=== PATIENT | female | born 1970 | race American Indian/Alaskan Native ===

== ENCOUNTER 2018-10-10 17:29 | Inpatient (IN) | payer MEDICAID ==
[~2018-10-10] VITALS: Ht 162.6 cm; Wt 72.6 kg
[~2018-10-10 17:29] MED LIST: ALDACTONE100 MG PO; ALDACTONE50 MG PO; CARAFATE1 G PO; ENULOSE10 G/15 ML PO; LASIX20 MG; LASIX40 MG PO; LEVAQUIN500 MG PO; PROTONIX40 MG PO; ULTRAM50 MG PO
[2018-10-10 18:39] VITALS: BP 105/55
[2018-10-10 18:41] LABS: BASOPHILS 0.2 % (0-2); EOSINOPHILS 1.2 % (0-7); HEMOGLOBIN 10.8 g/dL (12-16); IMMATURE GRANULOCYTES 0.9 % (0-5); LYMPHOCYTES 12.3 % (15-50); MCH 41.5 pg (26.0-34.0); MCHC 37.2 g/dL (31.0-37.0); MCV 111.5 fL (80.0-100.0); MEAN PLATELET VOLUME 12.3 fL (7.4-10.4); MONOCYTES 9.2 % (2-11); NEUTROPHILS 76.2 % (40-80); PLATELET COUNT 189 10x3/uL (130-400); RDW 14.8 % (11.5-14.5); WBC 12.8 10x3/uL (4.8-10.8)
[2018-10-10 19:46] LABS: ALBUMIN 1.7 g/dL (3.4-5.0); ALKALINE PHOSPHATASE 117 U/L (46-116); ALT (SGPT) 43 U/L (10-68); AMYLASE - SERUM 34 U/L (25-115); BILIRUBIN - DIRECT 19.49 mg/dL (0.00-0.30); CALC OSMOLALITY 256 mosm/kg (275-300); CARBON DIOXIDE 21.1 mmol/L (21.0-32.0); CHLORIDE - SERUM 95 mmol/L (98-107); CREATININE - SERUM 0.7 mg/dL (0.6-1.3); GLUCOSE 112 mg/dL (74-106); LIPASE 399 U/L (73-393); SODIUM 128 mmol/L (136-145); UREA NITROGEN 9 mg/dL (7-18); eGFR NON AFRICAN AMERICAN > 90 mL/min (90-120)
[2018-10-10 19:49] LABS: BILIRUBIN - INDIRECT 6.23 mg/dL (0.00-1.00); BILIRUBIN - TOTAL 25.72 mg/dL (0.2-1.3); TROPONIN-I < 0.017 ng/mL (0.000-0.060)
[2018-10-10 19:52] LABS: POTASSIUM - SERUM 2.9 mmol/L (3.5-5.1)
[2018-10-10 20:03] VITALS: BP 104/63
[2018-10-10 20:32] LABS: MAGNESIUM - SERUM 2.3 mg/dL (1.8-2.4)
[2018-10-10 21:04] VITALS: BP 99/66
--- NOTE | 2018-10-10 21:59 | NUR ---
URINE SENT TO THE LAB.
[2018-10-10 22:26] LABS: APPEARANCE CLOUDY (CLEAR); COLOR ORANGE (YELLOW)
[2018-10-10 22:28] LABS: BACTERIA MANY /hpf (NONE SEEN); EPITHELIAL CELLS 0-5 /hpf (0-5); RED CELLS - URINE OCC /hpf (0-5)
[2018-10-10 22:33] VITALS: BP 97/68; BMI 27.5
[2018-10-10 23:00] LABS: INR 3.93 (0.85-1.17); PROTIME 37.6 SECONDS (11.6-15.0)
[2018-10-11 04:31] VITALS: BP 105/60
[2018-10-11 07:37] VITALS: BP 95/58
--- NOTE | 2018-10-11 07:46 | NUR ---
PT SITTING UP IN BED EATING. ASSESSMENT COMPLETE. RR EVEN AND UNLABORED. DENIES NEEDS OR PAIN AT THIS TIME. SLIGHT JAUNDICE NOTED. CRACKLES IN LOWER RIGHT LOBE. IV SLIGHTLY BLOODY BUT PATENT. ABDOMEN DISTENDED. ACTIVE X4.
[2018-10-11 10:14] LABS: ALBUMIN 1.4 g/dL (3.4-5.0); ALKALINE PHOSPHATASE 105 U/L (46-116); BILIRUBIN - TOTAL 22.53 mg/dL (0.2-1.3); CALC OSMOLALITY 257 mosm/kg (275-300); CALCIUM 7.5 mg/dL (8.5-10.1); CARBON DIOXIDE 19.7 mmol/L (21.0-32.0); CHLORIDE - SERUM 96 mmol/L (98-107); CREATININE - SERUM 0.8 mg/dL (0.6-1.3); GLUCOSE 134 mg/dL (74-106); PROTEIN - SERUM 5.5 g/dL (6.4-8.2); SODIUM 128 mmol/L (136-145); UREA NITROGEN 9 mg/dL (7-18); eGFR NON AFRICAN AMERICAN 81 mL/min (90-120)
[2018-10-11 10:18] LABS: ALT (SGPT) 32 U/L (10-68)
[2018-10-11 10:19] LABS: POTASSIUM - SERUM 2.8 mmol/L (3.5-5.1)
[2018-10-11 10:26] LABS: BASOPHILS 0.2 % (0-2); EOSINOPHILS 1.4 % (0-7); HEMATOCRIT 25.2 % (36.0-48.0); HEMOGLOBIN 9.2 g/dL (12-16); IMMATURE GRANULOCYTES 0.8 % (0-5); LYMPHOCYTES 10.1 % (15-50); MCH 40.5 pg (26.0-34.0); MCHC 36.5 g/dL (31.0-37.0); MEAN PLATELET VOLUME 11.3 fL (7.4-10.4); MONOCYTES 8.9 % (2-11); NEUTROPHILS 78.6 % (40-80); RBC 2.27 10x6/uL (4.00-5.40); RDW 14.6 % (11.5-14.5)
[2018-10-11 10:31] LABS: PLATELET COUNT 120 10x3/uL (130-400)
[2018-10-11 10:58] LABS: INR 2.15 (0.85-1.17); PROTIME 23.4 SECONDS (11.6-15.0)
[2018-10-11 13:15] VITALS: Ht 162.6 cm; Wt 72.6 kg
--- NOTE | 2018-10-11 15:18 | NUR ---
I have reviewed this patient and I concur with the Shift Assessment completed by the Licensed Practical Nurse today this shift.
--- NOTE | 2018-10-11 16:33 | NUR ---
IV DRESSING CHANGED. CDI
--- NOTE | 2018-10-11 19:40 | NUR ---
EVENING ROUNDS COMPLETE. VSS, NO SIGNS OF DISTRESS, FAMILY AT BEDSIDE. PT SITTING UP IN BED. DENIES ANY PAIN AT THIS TIME. WILL CONT WITH POC.
[2018-10-11 20:07] VITALS: BP 102/62
[2018-10-12 01:01] VITALS: BP 95/47
[2018-10-12 05:23] VITALS: BP 95/50
[2018-10-12 06:38] LABS: INR 2.14 (0.85-1.17); PROTIME 23.3 SECONDS (11.6-15.0)
[2018-10-12 06:39] LABS: APTT 50.6 SECONDS (22.8-39.4)
[2018-10-12 06:52] LABS: BASOPHILS 0.2 % (0-2); EOSINOPHILS 1.9 % (0-7); HEMATOCRIT 25.4 % (36.0-48.0); HEMOGLOBIN 9.4 g/dL (12-16); IMMATURE GRANULOCYTES 0.7 % (0-5); LYMPHOCYTES 15.3 % (15-50); MCH 40.9 pg (26.0-34.0); MCV 110.4 fL (80.0-100.0); MEAN PLATELET VOLUME 11.2 fL (7.4-10.4); MONOCYTES 11.3 % (2-11); NEUTROPHILS 70.6 % (40-80); PLATELET COUNT 124 10x3/uL (130-400); RDW 14.7 % (11.5-14.5); WBC 8.8 10x3/uL (4.8-10.8)
[2018-10-12 07:02] LABS: % SATURATION 98 % (15-55); IRON 88 ug/dl (35-150); TOTAL IRON BIND CAPACITY 89 ug/dl (260-445); UNSAT IRON BIND CAPACITY 1 ug/dl (150-375)
[2018-10-12 07:31] LABS: ALBUMIN 1.5 g/dL (3.4-5.0); ALKALINE PHOSPHATASE 113 U/L (46-116); ALT (SGPT) 32 U/L (10-68); BILIRUBIN - TOTAL 20.88 mg/dL (0.2-1.3); CALC OSMOLALITY 254 mosm/kg (275-300); CALCIUM 7.8 mg/dL (8.5-10.1); CARBON DIOXIDE 20.6 mmol/L (21.0-32.0); CHLORIDE - SERUM 99 mmol/L (98-107); CREATININE - SERUM 0.7 mg/dL (0.6-1.3); GLUCOSE 104 mg/dL (74-106); LIPASE 549 U/L (73-393); PROTEIN - SERUM 5.6 g/dL (6.4-8.2); SODIUM 128 mmol/L (136-145); UREA NITROGEN 8 mg/dL (7-18); eGFR NON AFRICAN AMERICAN > 90 mL/min (90-120)
[2018-10-12 07:33] LABS: FERRITIN 1506 ng/mL (3-244); POTASSIUM - SERUM 3.6 mmol/L (3.5-5.1)
[2018-10-12 08:10] LABS: HEPATITIS C ANTIBODY <0.1 S/CO RAT (0.0-0.9)
--- NOTE | 2018-10-12 08:19 | NUR ---
PT SITTING UP. RR EVEN AND UNLABORED. NO DISTRESS NOTED. DENIES NEEDS OR PAIN AT THIS TIME. ALERT AND ORIENTED. WILL CONTINUE TO MONITOR.
--- NOTE | 2018-10-12 12:23 | NUR ---
IV LEAKING. D/C WITH CATHETER TIP INTACT. DRESSING PLACED OVER SITE, CDI. IV RESITED TO LEFT WRIST, DRESSING PLACED, CDI.
--- NOTE | 2018-10-12 14:39 | NUR ---
IR- WILL EVALUATE PT/INR IN AM FOR POSSIBLE PARACENTESIS
[2018-10-12 18:08] VITALS: BP 107/48
--- NOTE | 2018-10-12 18:54 | MORECARE ---
CASE MANAGEMENT DISCHARGE SUMMARY PATIENT: ADELINA FOSTER UNIT: [id number] ADM DATE: 10/11/18 AGE: 47 : 68 SEX: F ROOM/BED: D.1212 AUTHOR: MO,DOC PHYSICIAN: REFERRING PHYSICIAN: KENAN RUFFIN MD DATE OF SERVICE: 10/12/18 Discharge Plan Patient Name: ADELINA FOSTER Facility: [facility]:[place] : 1970 Planned Disposition: Home Anticipated Discharge Date: Discharge Date: Expected LOS: Initial Reviewer: [email or web address] Initial Review Date: 10/12/2018 Generated: 10/12/18 7:54 pm Comments DCP- Discharge Planning Updated by [email or web address]: Cristela Jack on 10/12/18 5:[address] Patient Name: ADELINA FOSTER Admission Status: ER Accout number: [id number] Admission Date: 10-11-2018 : 1970 Admission Diagnosis: Attending: KENAN RUFFIN Current LOS: 1 Anticipated DC Date: Planned Disposition: Home Primary Insurance: MEDICAID [place] PENDING Discharge Planning Comments: CM met with patient at bedside after explaining CM role and obtaining verbal consent. Patient lives at home with her son Laurence and plans to return there upon discharge. Patient feels this would be a safe discharge. CM discussed availability / needs of home health and medical equipment. Patient denies any discharge needs at this time. Patient states she will have her son drive her home upon discharge. CM will continue to follow and assist as needed with discharge planning / needs. Surgical Clinical Reviewer: Cristela Jack DCPIA - Discharge Planning Initial Assessment Updated by [email or web address]: Cristela Jack on 10/12/18 6:52 pm * Is the patient Alert and Oriented? Yes * How many steps to enter\exit or inside your home? 15 * PCP NO PCP * Pharmacy [facility] * Preadmission Environment Home with Family * ADLs Independent * List name and contact numbers for known caregivers / representatives who currently or will assist patient after discharge: LAURENCE LOUIE - ROSA - [phone] * Verbal permission to speak to the caregivers and representatives has been obtained from the patient. Yes * Community resources currently utilized None * Additional services required to return to the preadmission environment? No * Can the patient safely return to the preadmission environment? Yes * Has this patient been hospitalized within the prior 30 days at any hospital? No Patient Name: ADELINA FOSTER Page [phone] at 1854 All edits/amendments must be made on the electronic document DICTATION DATE: 10/12/181853 FIBER ANALYST: LUCÍA 10/12/181853 RPT#: [id number] DC DATE: STATUS: ADM IN [facility] [address] [place] [address] END OF REPORT
[2018-10-12 19:50] VITALS: BP 101/65
--- NOTE | 2018-10-12 20:00 | NUR ---
EVENING ROUNDS COMPLETE, PT SITTING UP IN BED, FAMILY AT BEDSIDE. VSS, NO SIGNS OF DISTRESS, PT DENIES ANY PAIN OR NEEDS AT THIS TIME. WILL CONT WITH POC.
[2018-10-12 23:39] VITALS: BP 97/57
[2018-10-13] VITALS (12 sets, daily range): BP systolic 87–106; BP diastolic 50–70
--- NOTE | 2018-10-13 04:43 | NUR ---
PT SITTING UP IN BED, NO SIGNS OF DISTRESS, NO C/O PAIN AT THIS TIME. WILL CONT WITH POC.
--- NOTE | 2018-10-13 07:10 | NUR ---
PT RESTING IN BED. SHIFT ASSESSMENT PERFORMED. VSS AND WNL. DENIES ANY NEEDS AT THIS TIME, WILL CONT TO FOLLOW POC
[2018-10-13 07:51] LABS: BASOPHILS 0.2 % (0-2); EOSINOPHILS 2.4 % (0-7); HEMATOCRIT 24.7 % (36.0-48.0); HEMOGLOBIN 9.1 g/dL (12-16); IMMATURE GRANULOCYTES 0.7 % (0-5); LYMPHOCYTES 14.1 % (15-50); MCH 40.4 pg (26.0-34.0); MCHC 36.8 g/dL (31.0-37.0); MCV 109.8 fL (80.0-100.0); MEAN PLATELET VOLUME 10.8 fL (7.4-10.4); NEUTROPHILS 72.6 % (40-80); PLATELET COUNT 114 10x3/uL (130-400); RBC 2.25 10x6/uL (4.00-5.40); RDW 14.4 % (11.5-14.5); WBC 8.7 10x3/uL (4.8-10.8)
[2018-10-13 07:53] LABS: APTT 50.7 SECONDS (22.8-39.4); INR 2.04 (0.85-1.17); PROTIME 22.4 SECONDS (11.6-15.0)
[2018-10-13 08:00] LABS: ALBUMIN 1.4 g/dL (3.4-5.0); ALKALINE PHOSPHATASE 118 U/L (46-116); ALT (SGPT) 32 U/L (10-68); BILIRUBIN - TOTAL 20.16 mg/dL (0.2-1.3); CALC OSMOLALITY 259 mosm/kg (275-300); CALCIUM 7.7 mg/dL (8.5-10.1); CARBON DIOXIDE 21.5 mmol/L (21.0-32.0); CHLORIDE - SERUM 99 mmol/L (98-107); CREATININE - SERUM 0.7 mg/dL (0.6-1.3); GLUCOSE 112 mg/dL (74-106); LIPASE 589 U/L (73-393); PROTEIN - SERUM 5.6 g/dL (6.4-8.2); SODIUM 130 mmol/L (136-145); UREA NITROGEN 7 mg/dL (7-18); eGFR NON AFRICAN AMERICAN > 90 mL/min (90-120)
[2018-10-13 08:01] LABS: POTASSIUM - SERUM 2.9 mmol/L (3.5-5.1)
--- NOTE | 2018-10-13 08:15 | NUR ---
IVR NOTIFIED NURSE TO OBTAIN CONSENT FOR PARACENTESIS AND TO START NS AT [facility]. CONSENT SIGNED WITH SECOND NURSE WITNESS. IVR HERE AND TOOK PT FOR PROCEDURE
--- NOTE | 2018-10-13 18:08 | NUR ---
PT RESTING IN BED, DENIES ANY NEEDS AT THIS TIME. WILL CONT TO FOLLOW POC
--- NOTE | 2018-10-13 19:17 | NUR ---
EVENING ROUNDS COMPLETE. PT SITTING UP IN BED WITH FAMILY AT BEDSIDE, VSS, NO C/O PAIN AT THIS TIME. PT DENIES ANY FURTHER NEEDS, WILL CONT WITH POC.
[2018-10-14 00:11] VITALS: BP 98/56
--- NOTE | 2018-10-14 00:40 | NUR ---
PT LAYING IN BED, NO C/O PAIN WILL CONT WITH POC.
[2018-10-14 03:56] VITALS: BP 102/56
[2018-10-14 06:57] VITALS: BP 90/50
[2018-10-14 07:01] LABS: INR 2.17 (0.85-1.17); PROTIME 23.4 SECONDS (11.6-15.0)
[2018-10-14 07:16] LABS: ALKALINE PHOSPHATASE 108 U/L (46-116); ALT (SGPT) 30 U/L (10-68); BILIRUBIN - TOTAL 19.54 mg/dL (0.2-1.3); CALC OSMOLALITY 263 mosm/kg (275-300); CALCIUM 8.1 mg/dL (8.5-10.1); CARBON DIOXIDE 21.8 mmol/L (21.0-32.0); CHLORIDE - SERUM 101 mmol/L (98-107); CREATININE - SERUM 0.7 mg/dL (0.6-1.3); GLUCOSE 113 mg/dL (74-106); LIPASE 496 U/L (73-393); PROTEIN - SERUM 5.5 g/dL (6.4-8.2); SODIUM 132 mmol/L (136-145); UREA NITROGEN 7 mg/dL (7-18); eGFR NON AFRICAN AMERICAN > 90 mL/min (90-120)
[2018-10-14 07:24] LABS: ALBUMIN 1.8 g/dL (3.4-5.0); POTASSIUM - SERUM 3.4 mmol/L (3.5-5.1)
--- NOTE | 2018-10-14 07:44 | NUR ---
PT RESTING IN BED, SHIFT ASSESSMENT PERFORMED. DENIES ANY NEEDS AT THIS TIME. WILL CONT TO FOLLOW POC
[2018-10-14 08:12] LABS: BASOPHILS 0.3 % (0-2); EOSINOPHILS 2.7 % (0-7); HEMATOCRIT 24.4 % (36.0-48.0); HEMOGLOBIN 8.9 g/dL (12-16); IMMATURE GRANULOCYTES 1.1 % (0-5); LYMPHOCYTES 15.8 % (15-50); MCH 40.6 pg (26.0-34.0); MCHC 36.5 g/dL (31.0-37.0); MCV 111.4 fL (80.0-100.0); MEAN PLATELET VOLUME 11.3 fL (7.4-10.4); MONOCYTES 12.4 % (2-11); NEUTROPHILS 67.7 % (40-80); PLATELET COUNT 103 10x3/uL (130-400); RBC 2.19 10x6/uL (4.00-5.40); RDW 14.5 % (11.5-14.5); WBC 7.4 10x3/uL (4.8-10.8)
--- NOTE | 2018-10-14 11:42 | NUR ---
PT RESTING IN BED, DENIES ANY NEEDS AT THIS TIME. WILL CONT TO FOLLOW POC
[2018-10-14 11:57] VITALS: BP 102/56
--- NOTE | 2018-10-14 12:49 | NUR ---
Nutrition Follow-up: S/p paracentesis 10/13. Pt reports increased PO intake 2/2 decreased abdominal swelling. Also drinking Boost. Diarrhea 2/2 lactulose. Diet: Cardiac/1500 alfreda 2g Na PO intake: 75% this AM Labs reviewed Meds reviewed Rec continue current diet as tolerated. [place] food preferences within diet restrictions. RD following.
--- NOTE | 2018-10-14 18:30 | NUR ---
PT RESTING IN BED, FAMILY AT BEDSIDE, DENIES ANY NEEDS AT THIS TIME, WILL CONT TO FOLLOW POC
--- NOTE | 2018-10-14 19:40 | NUR ---
RECEIVED PT. VOICES NO C/O OF PAIN OR DISCOMFORT AT THIS TIME. NO S/S OF DISTRESS NOTED. SON PRESENT AT BEDSIDE. WILL CPOC.
[2018-10-14 20:00] VITALS: BP 90/50
[2018-10-15] VITALS: BP 102/58
[2018-10-15 03:50] VITALS: BP 99/57
[2018-10-15 07:11] LABS: ALBUMIN 1.8 g/dL (3.4-5.0); ALKALINE PHOSPHATASE 122 U/L (46-116); ALT (SGPT) 33 U/L (10-68); BILIRUBIN - TOTAL 20.08 mg/dL (0.2-1.3); CALC OSMOLALITY 258 mosm/kg (275-300); CALCIUM 8.2 mg/dL (8.5-10.1); CARBON DIOXIDE 19.3 mmol/L (21.0-32.0); CHLORIDE - SERUM 100 mmol/L (98-107); CREATININE - SERUM 0.6 mg/dL (0.6-1.3); GLUCOSE 107 mg/dL (74-106); LIPASE 509 U/L (73-393); SODIUM 130 mmol/L (136-145); UREA NITROGEN 7 mg/dL (7-18); eGFR NON AFRICAN AMERICAN > 90 mL/min (90-120)
[2018-10-15 07:14] LABS: BASOPHILS 0.2 % (0-2); EOSINOPHILS 2.2 % (0-7); HEMATOCRIT 26.9 % (36.0-48.0); HEMOGLOBIN 9.6 g/dL (12-16); IMMATURE GRANULOCYTES 1.1 % (0-5); LYMPHOCYTES 16.4 % (15-50); MCH 40.3 pg (26.0-34.0); MCHC 35.7 g/dL (31.0-37.0); MEAN PLATELET VOLUME 11.7 fL (7.4-10.4); MONOCYTES 10.6 % (2-11); NEUTROPHILS 69.5 % (40-80); PLATELET COUNT 113 10x3/uL (130-400); RBC 2.38 10x6/uL (4.00-5.40); RDW 14.6 % (11.5-14.5); WBC 8.9 10x3/uL (4.8-10.8)
[2018-10-15 07:19] LABS: APTT 48.9 SECONDS (22.8-39.4); INR 1.98 (0.85-1.17); PROTIME 21.8 SECONDS (11.6-15.0)
--- NOTE | 2018-10-15 07:45 | NUR ---
PT RESTING IN BED, VSS AND WNL. SHIFT ASSESSMENT PERFORMED. DENIES ANY NEEDS AT THIS TIME, CALL LIGHT WITHIN REACH, WILL CONT TO FOLLOW POC
[2018-10-15 08:30] VITALS: BP 94/52
--- NOTE | 2018-10-15 12:00 | NUR ---
PT RESTING IN BED, DENIES ANY NEEDS AT THIS TIME. WILL CONT TO FOLLOW POC
--- NOTE | 2018-10-15 13:59 | NUR ---
PIV TO PT LEFT WRIST INFILTRATED, PIV REMOVED WITH CATHETER TIP INTACT. 22G PIV INSERTED X1 ATTEMPT TO RIGHT FA. PT TOLERATED WELL.
--- NOTE | 2018-10-15 18:16 | NUR ---
PT RESTING IN BED, DENIES ANY NEEDS AT THIS TIME, WILL CONT TO FOLLOW POC
--- NOTE | 2018-10-15 19:20 | NUR ---
RECEIVED PT. IN BED. RR EVEN AND UNLABORED. NO S/S OF DISTRESS NOTED AT THIS TIME. PROVIDED PAIN MEDICATION PER REQUEST. WILL CPOC.
[2018-10-15 19:40] VITALS: BP 112/58
--- NOTE | 2018-10-15 19:40 | NUR ---
RECEIVED PT. IN BED RESTING. VOICES NO C/O OR CONCERNS NOTED AT THIS TIME. NO S/S OF DISTRESS. WILL CPOC.
[2018-10-16 00:45] VITALS: BP 104/54
--- NOTE | 2018-10-16 07:37 | NUR ---
PT RESTING IN BED. BROUGHT SOME COFFEE PER REQUEST. NO S/S OF ACUTE DISTRESS. CL IN PLACE.
[2018-10-16 07:44] VITALS: BP 93/50
[2018-10-16 09:00] LABS: BASOPHILS 0.3 % (0-2); EOSINOPHILS 2.3 % (0-7); HEMATOCRIT 26.7 % (36.0-48.0); HEMOGLOBIN 9.3 g/dL (12-16); IMMATURE GRANULOCYTES 0.9 % (0-5); LYMPHOCYTES 12.9 % (15-50); MCH 39.7 pg (26.0-34.0); MCHC 34.8 g/dL (31.0-37.0); MCV 114.1 fL (80.0-100.0); MEAN PLATELET VOLUME 11.4 fL (7.4-10.4); MONOCYTES 10.4 % (2-11); NEUTROPHILS 73.2 % (40-80); PLATELET COUNT 106 10x3/uL (130-400); RBC 2.34 10x6/uL (4.00-5.40); RDW 14.6 % (11.5-14.5); WBC 7.4 10x3/uL (4.8-10.8)
[2018-10-16 09:17] LABS: ALBUMIN 1.8 g/dL (3.4-5.0); ALKALINE PHOSPHATASE 126 U/L (46-116); ALT (SGPT) 37 U/L (10-68); APTT 49.4 SECONDS (22.8-39.4); BILIRUBIN - TOTAL 20.24 mg/dL (0.2-1.3); CALCIUM 8.4 mg/dL (8.5-10.1); CARBON DIOXIDE 18.8 mmol/L (21.0-32.0); CHLORIDE - SERUM 98 mmol/L (98-107); GLUCOSE 144 mg/dL (74-106); INR 1.96 (0.85-1.17); LIPASE 566 U/L (73-393); POTASSIUM - SERUM 3.8 mmol/L (3.5-5.1); PROTEIN - SERUM 5.8 g/dL (6.4-8.2); PROTIME 21.7 SECONDS (11.6-15.0); SODIUM 128 mmol/L (136-145); eGFR NON AFRICAN AMERICAN 81 mL/min (90-120)
[2018-10-16 09:19] LABS: CALC OSMOLALITY 258 mosm/kg (275-300); CREATININE - SERUM 0.8 mg/dL (0.6-1.3); UREA NITROGEN 10 mg/dL (7-18)
--- NOTE | 2018-10-16 11:03 | NUR ---
1030 SPOKE WITH EDGAR ABOUT AMMONIA-55. NO NEW ORDERS DT NO MENTAL CHANGES. 110/60. ASKED IF WE SHOULD GIVE LASIX AND SPIRALACTONE. OK TO ADMINISTER LASIX. WAIT TO ADMINISTER SPIRALACTONE IN 3 HOURS. NO S/S OF ACUTE DISTRESS. CL IN PLACE.
[2018-10-16 12:18] VITALS: BP 99/55
--- NOTE | 2018-10-16 13:27 | NUR ---
REC'D PT FROM IR. 96/53.99.96% ON RA. DENIES ANY PAIN. NO S/S OF ACUTE DISTRESS. CL IN PLACE.
[2018-10-16 15:56] VITALS: BP 88/46
--- NOTE | 2018-10-16 18:29 | NUR ---
PT RESTING IN BED. NO S/S OF ACUTE DISTRESS. DENIES ANY NEEDS. CL IN PLACE.
--- NOTE | 2018-10-16 19:38 | NUR ---
ASSUMED PT CARE. IN BED RESTING. DENIES NEEDS AT THIS TIME. RR EVEN AND UNLABORED. NO S/S OF DISTRESS NOTED. WILL CPOC.
[2018-10-16 20:15] VITALS: BP 105/62
[2018-10-17 05:27] VITALS: BP 96/55
[2018-10-17 06:55] LABS: BASOPHILS 0.3 % (0-2); EOSINOPHILS 1.9 % (0-7); HEMOGLOBIN 8.9 g/dL (12-16); IMMATURE GRANULOCYTES 1.1 % (0-5); MCH 39.9 pg (26.0-34.0); MCHC 35.6 g/dL (31.0-37.0); MEAN PLATELET VOLUME 11.3 fL (7.4-10.4); MONOCYTES 12.5 % (2-11); NEUTROPHILS 69.2 % (40-80); PLATELET COUNT 93 10x3/uL (130-400); RBC 2.23 10x6/uL (4.00-5.40); RDW 14.4 % (11.5-14.5); WBC 7.3 10x3/uL (4.8-10.8)
[2018-10-17 07:01] LABS: MCV 112.1 fL (80.0-100.0)
[2018-10-17 07:18] LABS: ALBUMIN 1.6 g/dL (3.4-5.0); ALKALINE PHOSPHATASE 113 U/L (46-116); BILIRUBIN - TOTAL 18.47 mg/dL (0.2-1.3); CALC OSMOLALITY 256 mosm/kg (275-300); CALCIUM 8.5 mg/dL (8.5-10.1); CARBON DIOXIDE 19.3 mmol/L (21.0-32.0); CHLORIDE - SERUM 99 mmol/L (98-107); CREATININE - SERUM 0.7 mg/dL (0.6-1.3); GLUCOSE 111 mg/dL (74-106); POTASSIUM - SERUM 3.5 mmol/L (3.5-5.1); PROTEIN - SERUM 5.6 g/dL (6.4-8.2); SODIUM 128 mmol/L (136-145); UREA NITROGEN 10 mg/dL (7-18); eGFR NON AFRICAN AMERICAN > 90 mL/min (90-120)
[2018-10-17 07:21] LABS: ALT (SGPT) 26 U/L (10-68)
[2018-10-17 07:27] VITALS: BP 93/54
--- NOTE | 2018-10-17 07:30 | NUR ---
PT RESTING IN BED, VSS AND WNL. SHIFT ASSESSMENT PERFORMED. DENIES ANY NEEDS AT THIS TIME. WILL CONT TO FOLLOW POC
[2018-10-17 10:53] LABS: PLATELET ESTIMATE DECREASED
--- NOTE | 2018-10-17 11:58 | NUR ---
PT RESTING IN BED, DENIES ANY NEEDS AT THIS TIME, WILL CONT TO FOLLOW POC
[2018-10-17 12:11] VITALS: BP 101/62
--- NOTE | 2018-10-17 16:56 | NUR ---
PT SITTING UP IN BED EATING DINNER, DENIES ANY NEEDS AT THIS TIME, WILL CONT TO FOLLOW POC
--- NOTE | 2018-10-17 19:20 | NUR ---
ALERT AND OX4 BED IS LOW AND LOCKED SR X1 AND FAMILY PRESENT PT DENIES NEEDS AND PAIN AT THIS TIME SKIN IS YELLOW BUT WARM AND DRY AND LCTA CALL LIGHT IS [place] REACH
[2018-10-17 19:50] VITALS: BP 101/47
--- NOTE | 2018-10-18 00:34 | NUR ---
I have reviewed this patient and I concur with the Shift Assessment completed by the Licensed Practical Nurse today this shift.
[2018-10-18 00:56] VITALS: BP 100/60
[2018-10-18 04:16] VITALS: BP 92/55
[2018-10-18 06:17] LABS: BASOPHILS 0.3 % (0-2); EOSINOPHILS 2.2 % (0-7); HEMATOCRIT 22.3 % (36.0-48.0); HEMOGLOBIN 8.2 g/dL (12-16); MCH 40.6 pg (26.0-34.0); MCHC 36.8 g/dL (31.0-37.0); MCV 110.4 fL (80.0-100.0); MEAN PLATELET VOLUME 11.3 fL (7.4-10.4); MONOCYTES 10.8 % (2-11); NEUTROPHILS 69.7 % (40-80); PLATELET COUNT 92 10x3/uL (130-400); RBC 2.02 10x6/uL (4.00-5.40); RDW 14.2 % (11.5-14.5); WBC 6.8 10x3/uL (4.8-10.8)
[2018-10-18 07:21] LABS: ALBUMIN 1.5 g/dL (3.4-5.0); ALKALINE PHOSPHATASE 114 U/L (46-116); ALT (SGPT) 27 U/L (10-68); BILIRUBIN - TOTAL 16.92 mg/dL (0.2-1.3); CALC OSMOLALITY 255 mosm/kg (275-300); CALCIUM 8.1 mg/dL (8.5-10.1); CARBON DIOXIDE 19.1 mmol/L (21.0-32.0); CHLORIDE - SERUM 99 mmol/L (98-107); CREATININE - SERUM 0.7 mg/dL (0.6-1.3); GLUCOSE 106 mg/dL (74-106); POTASSIUM - SERUM 3.4 mmol/L (3.5-5.1); PROTEIN - SERUM 5.4 g/dL (6.4-8.2); SODIUM 128 mmol/L (136-145); UREA NITROGEN 11 mg/dL (7-18); eGFR NON AFRICAN AMERICAN > 90 mL/min (90-120)
[2018-10-18 07:41] VITALS: BP 83/48
--- NOTE | 2018-10-18 08:01 | NUR ---
PT RESTING IN BED, SHIFT ASSESSMENT PERFORMED. VSS AND WNL. DENIES ANY NEEDS AT THIS TIME, WILL CONT TO FOLLOW POC
[2018-10-18 12:00] VITALS: BP 99/56
--- NOTE | 2018-10-18 12:00 | NUR ---
PT RESTING IN BED, DENIES ANY NEEDS AT THIS TIME, WILL CONT TO FOLLOW POC
--- NOTE | 2018-10-18 12:54 | NUR ---
Nutrition follow-up: Diet: Low sodium s/p paracentesis 10/16 PO intake 25-50% of meals Labs reviewed +BM Wt: 160# Pt feeling a little better after procedure RDN following.
--- NOTE | 2018-10-18 13:46 | NUR ---
OT NOTE: PT DOING WELL AND ACTIVELY PARTICIPATED. PT REQUIRED MIN A FOR SUPINE TO SIT ONLY. PT COMPLETED SIT TO STAND WITH SPV. PT COMPLETED ADL MOB WITH SPV. PT COMPLETED HYGIENE TASKS WITH SPV. THANK YOU, REINA ACHARYA
[2018-10-18 14:52] VITALS: BP 86/54
--- NOTE | 2018-10-18 17:55 | NUR ---
PT RESTING IN BED, DENIES ANY NEEDS AT THIS TIME, WILL CONT TO FOLLOW POC
--- NOTE | 2018-10-18 19:35 | NUR ---
EVENING ROUNDS COMPLET, PT SITTING UP IN BED WITH FAMILY AT BEDSIDE. VSS, NO C/O PAIN AT THIS TIME. NO NEEDS VOICED AT THIS TIME. CL IN REACH, BED IN LOWEST POSITION. CONT WITH POC.
[2018-10-18 20:43] VITALS: BP 94/52
[2018-10-19 00:46] VITALS: BP 94/52
[2018-10-19 04:53] VITALS: BP 92/52
[2018-10-19 08:00] LABS: BASOPHILS 0.3 % (0-2); EOSINOPHILS 1.7 % (0-7); HEMATOCRIT 23.9 % (36.0-48.0); HEMOGLOBIN 8.6 g/dL (12-16); IMMATURE GRANULOCYTES 0.9 % (0-5); LYMPHOCYTES 13.7 % (15-50); MCV 111.2 fL (80.0-100.0); MEAN PLATELET VOLUME 10.9 fL (7.4-10.4); MONOCYTES 10.5 % (2-11); NEUTROPHILS 72.9 % (40-80); PLATELET COUNT 94 10x3/uL (130-400); RBC 2.15 10x6/uL (4.00-5.40); RDW 14.3 % (11.5-14.5); WBC 7.8 10x3/uL (4.8-10.8)
[2018-10-19] MEDS ORDERED: ALDACTONE100 MG PO (08:14)
[2018-10-19] MEDS ORDERED: XIFAXAN550 MG PO (08:14)
[2018-10-19] MEDS ORDERED: LASIX40 MG PO (08:14)
[2018-10-19] MEDS ORDERED: PROTONIX40 MG PO (08:14)
[2018-10-19] MEDS ORDERED: CHRONULAC30 ML PO (08:14)
[2018-10-19] MEDS ORDERED: K-DUR20 MEQ PO (08:15)
[2018-10-19 08:18] VITALS: BP 97/54
[2018-10-19 08:20] LABS: INR 1.96 (0.85-1.17); PROTIME 21.7 SECONDS (11.6-15.0)
[2018-10-19 08:46] LABS: ALBUMIN 1.6 g/dL (3.4-5.0); ALKALINE PHOSPHATASE 125 U/L (46-116); ALT (SGPT) 30 U/L (10-68); BILIRUBIN - TOTAL 17.63 mg/dL (0.2-1.3); CALC OSMOLALITY 261 mosm/kg (275-300); CALCIUM 8.6 mg/dL (8.5-10.1); CARBON DIOXIDE 19.3 mmol/L (21.0-32.0); CHLORIDE - SERUM 101 mmol/L (98-107); CREATININE - SERUM 0.8 mg/dL (0.6-1.3); GLUCOSE 102 mg/dL (74-106); PROTEIN - SERUM 5.7 g/dL (6.4-8.2); SODIUM 131 mmol/L (136-145); UREA NITROGEN 9 mg/dL (7-18); eGFR NON AFRICAN AMERICAN 81 mL/min (90-120)
--- NOTE | 2018-10-19 10:35 | NUR ---
DISCHARGE INSTRUCTIONS REVIEWED WITH PT AND ALL QUESTIONS ANSWERED. PIV REMOVED WITH CATHETER TIP INTACT. ASSISTED PT TO FRONT OF HOSPITAL WHERE SHE LEFT WITH SON
[2018-10-19 11:38] LABS: PLATELET ESTIMATE DECREASED
[2018-10-19 11:39] LABS: ROULEAUX OCC; TEAR DROP CELLS OCC
--- NOTE | 2018-10-19 18:32 | MORECARE ---
CASE MANAGEMENT DISCHARGE SUMMARY PATIENT: ADELINA FOSTER UNIT: [id number] ADM DATE: 10/11/18 AGE: 47 : 68 SEX: F ROOM/BED: D.1212 AUTHOR: MO,DOC PHYSICIAN: REFERRING PHYSICIAN: KENAN RUFFIN MD DATE OF SERVICE: 10/19/18 Discharge Plan Patient Name: ADELINA FOSTER Facility: [facility]:[place] : 1970 Planned Disposition: Home Anticipated Discharge Date: Discharge Date: 10/19/2018 Expected LOS: Initial Reviewer: [email or web address] Initial Review Date: 10/12/2018 Generated: 10/19/18 7:32 pm DCP- Discharge Planning Updated by [email or web address]: Cristela Jack on 10/12/18 5:[address] Patient Name: ADELINA FOSTER Admission Status: ER Accout number: [id number] Admission Date: 10-11-2018 : 1970 Admission Diagnosis: Attending: KENAN RUFFIN Current LOS: 1 Anticipated DC Date: Planned Disposition: Home Primary Insurance: MEDICAID [place] PENDING Discharge Planning Comments: CM met with patient at bedside after explaining CM role and obtaining verbal consent. Patient lives at home with her son Laurence and plans to return there upon discharge. Patient feels this would be a safe discharge. CM discussed availability / needs of home health and medical equipment. Patient denies any discharge needs at this time. Patient states she will have her son drive her home upon discharge. CM will continue to follow and assist as needed with discharge planning / needs. Head Soft Sugar Operator: Cristela Jack DCPIA - Discharge Planning Initial Assessment Updated by [email or web address]: Cristela Jack on 10/12/18 6:52 pm * Is the patient Alert and Oriented? Yes * How many steps to enter\exit or inside your home? 15 * PCP NO PCP * Pharmacy [facility] * Preadmission Environment Home with Family * ADLs Independent * List name and contact numbers for known caregivers / representatives who currently or will assist patient after discharge: LAURENCE LOUIE - SON - [phone] * Verbal permission to speak to the caregivers and representatives has been obtained from the patient. Yes * Community resources currently utilized None * Additional services required to return to the preadmission environment? No * Can the patient safely return to the preadmission environment? Yes * Has this patient been hospitalized within the prior 30 days at any hospital? No Last DP export: 10/12/18 5:54 pm Patient Name: ADELINA FOSTER Page [id number] at 1832 All edits/amendments must be made on the electronic document DICTATION DATE: 10/19/181831 GROUP ACTIVITIES AIDE: LUCÍA 10/19/181831 RPT#: [id number] DC DATE:10/19/18 STATUS: DIS IN [facility] [address] [place] [address] END OF REPORT
== END 2018-10-19 10:36 | disposition home or self-care (01) | DRG 433 ==
LOC: D.ER 17:29 → D.M3 20:36 → OBSVTIME 20:36 → D.M3 10-11 16:33
PROVIDERS: Emergency Medicine; General Practice; Internal Medicine Gastroenterology; ADMIT Internal Medicine Nephrology; ATTEND Internal Medicine Nephrology
PROC: 0W9G3ZZ Drainage of Peritoneal Cavity, Percutaneous Approach (ICD-10-PCS; principal; 2018-10-13 08:29)
DX: K70.31 Alcoholic cirrhosis of liver with ascites (principal); N39.0 Urinary tract infection, site not specified; K76.1 Chronic passive congestion of liver; K70.11 Alcoholic hepatitis with ascites; D69.6 Thrombocytopenia, unspecified; E87.6 Hypokalemia; D64.9 Anemia, unspecified; B96.20 Unspecified Escherichia coli [E. coli] as the cause of diseases classified elsewhere

== ENCOUNTER 2018-10-30 12:54 | Inpatient (IN) | payer MEDICAID ==
[~2018-10-30] VITALS: Ht 162.6 cm; Wt 72.6 kg
[~2018-10-30 12:54] MED LIST changes: +CHRONULAC30 ML PO; +K-DUR20 MEQ PO; +XIFAXAN550 MG PO
[2018-10-30 13:20] LABS: BASOPHILS 0.1 % (0-2); EOSINOPHILS 0.4 % (0-7); HEMATOCRIT 23.9 % (36.0-48.0); HEMOGLOBIN 8.5 g/dL (12-16); IMMATURE GRANULOCYTES 1.5 % (0-5); LYMPHOCYTES 7.4 % (15-50); MCH 39.2 pg (26.0-34.0); MCHC 35.6 g/dL (31.0-37.0); MCV 110.1 fL (80.0-100.0); NEUTROPHILS 82.6 % (40-80); RBC 2.17 10x6/uL (4.00-5.40); RDW 14.3 % (11.5-14.5)
[2018-10-30 13:21] LABS: PLATELET COUNT 152 10x3/uL (130-400)
[2018-10-30 13:29] LABS: ALBUMIN 1.9 g/dL (3.4-5.0); ANION GAP 13.8 mmol/L (8-16); BILIRUBIN - TOTAL 14.69 mg/dL (0.2-1.3); CALCIUM 8.4 mg/dL (8.5-10.1); CARBON DIOXIDE 20.2 mmol/L (21.0-32.0); CREATININE - SERUM 1.2 mg/dL (0.6-1.3); PROTEIN - SERUM 6.9 g/dL (6.4-8.2)
--- NOTE | 2018-10-30 13:55 | NUR ---
PATIENT TO CT VIA WHEELCHAIR
[2018-10-30 14:30] VITALS: BP 92/42
[2018-10-30 14:36] LABS: INR 1.84 (0.85-1.17); PROTIME 20.6 SECONDS (11.6-15.0)
[2018-10-30 14:50] VITALS: BP 88/44
[2018-10-30 15:00] VITALS: BP 99/52
[2018-10-30 15:03] VITALS: BP 97/55
[2018-10-30 17:02] VITALS: BP 106/54; BMI 27.5
[2018-10-30 17:27] LABS: APPEARANCE CLEAR (CLEAR); BILIRUBIN NEGATIVE (NEGATIVE); COLOR DK YELLOW (YELLOW); GLUCOSE NEGATIVE (NEGATIVE); KETONE NEGATIVE (NEGATIVE); NITRITE NEGATIVE (NEGATIVE); PROTEIN NEGATIVE (NEGATIVE); UROBILINOGEN NORMAL (NORMAL)
--- NOTE | 2018-10-30 17:59 | NUR ---
I have reviewed this patient and I concur with the Shift Assessment completed by the Licensed Practical Nurse today this shift.
--- NOTE | 2018-10-30 19:49 | NUR ---
LYING IN BED WITH TV ON, DENIES PAIN AT THIS TIME, BUT DOES STATE HER MOUTH IS EXTREMELY DRY, MOUTH SWABS AND MOUTH MOISTURIZER GIVEN DUE TO NPO STATUS. WILL NOTE ANY CHANGE.
[2018-10-30 19:50] VITALS: BP 92/50
[2018-10-31] VITALS: BP 85/48
--- NOTE | 2018-10-31 02:22 | NUR ---
I have reviewed this patient and I concur with the Shift Assessment completed by the Licensed Practical Nurse today this shift.
[2018-10-31 04:00] VITALS: BP 87/47
[2018-10-31 06:40] LABS: BASOPHILS 0.3 % (0-2); EOSINOPHILS 1.4 % (0-7); IMMATURE GRANULOCYTES 1.4 % (0-5); MCH 39.7 pg (26.0-34.0); MCHC 36.7 g/dL (31.0-37.0); MCV 108.2 fL (80.0-100.0); MEAN PLATELET VOLUME 10.7 fL (7.4-10.4); MONOCYTES 9.3 % (2-11); NEUTROPHILS 73.6 % (40-80); PLATELET COUNT 133 10x3/uL (130-400); RDW 14.4 % (11.5-14.5)
[2018-10-31 06:48] LABS: WBC 10.3 10x3/uL (4.8-10.8)
[2018-10-31 06:49] LABS: ALBUMIN 1.6 g/dL (3.4-5.0); ANION GAP 13.4 mmol/L (8-16); BILIRUBIN - TOTAL 13.33 mg/dL (0.2-1.3); CARBON DIOXIDE 19.6 mmol/L (21.0-32.0); MAGNESIUM - SERUM 1.9 mg/dL (1.8-2.4); PROTEIN - SERUM 5.8 g/dL (6.4-8.2)
[2018-10-31 06:50] LABS: RBC 1.84 10x6/uL (4.00-5.40)
[2018-10-31 06:51] LABS: HEMATOCRIT 19.9 % (36.0-48.0); HEMOGLOBIN 7.3 g/dL (12-16)
--- NOTE | 2018-10-31 06:56 | NUR ---
CRITICAL LAB VALUES CALLED IN, RBC 1.84, HGB 7.3, HMT 19.9, AMMONIA 50. PAGED LAMBERTO.
[2018-10-31 06:58] LABS: INR 1.91 (0.85-1.17); PROTIME 21.2 SECONDS (11.6-15.0)
[2018-10-31 07:14] VITALS: BP 99/57
--- NOTE | 2018-10-31 07:33 | NUR ---
PT RESTING IN BED. NO S/S OF ACUTE DISTRESS. CL IN PLACE.
--- NOTE | 2018-10-31 08:20 | NUR ---
SPOKE WITH BERNICE IN IR. "PER DR COURTNEY, PARACENTESIS WILL NOT BE DONE TODAY. PRBC NEED TO BE TRANSFUSED AND RECHECK CBC, PT/INR IN AM. PT ABLE TO EAT." CALLED DIETARY TO ORDER A TRAY. NO S/S OF ACUTE DISTRESS. CL IN PLACE.
[2018-10-31 12:43] VITALS: BP 107/58
[2018-10-31 18:26] VITALS: BP 99/55
--- NOTE | 2018-10-31 18:28 | NUR ---
2 UNITS OF PRBC INFUSED. NO S/S OF ACUTE DISTRESS. SON AT BEDSIDE. NO S/S OF A TRANSFUSION REACTION. CL IN PLACE.
--- NOTE | 2018-10-31 19:15 | NUR ---
RECEIVED CARE FROM DAY NURSE. UP IN BATHROOM. REQUEST IV TO BE WRAPPED FOR SHOWER. DONE AT THIS TIME. NO OTHER NEEDS VOICED AT THIS TIME. SON IN ROOM.
[2018-10-31 20:00] VITALS: BP 105/61
[2018-11-01] VITALS (9 sets, daily range): BP systolic 83–109; BP diastolic 43–84; Ht 162.6 cm; Wt 72.6 kg
--- NOTE | 2018-11-01 00:58 | NUR ---
I have reviewed this patient and I concur with the Shift Assessment completed by the Licensed Practical Nurse today this shift.
[2018-11-01 06:23] LABS: BASOPHILS 0.2 % (0-2); EOSINOPHILS 1.7 % (0-7); IMMATURE GRANULOCYTES 1.3 % (0-5); LYMPHOCYTES 14.1 % (15-50); MCH 36.5 pg (26.0-34.0); MCHC 36.5 g/dL (31.0-37.0); MONOCYTES 10.4 % (2-11); NEUTROPHILS 72.3 % (40-80); PLATELET COUNT 113 10x3/uL (130-400); RDW 20.5 % (11.5-14.5); WBC 9.4 10x3/uL (4.8-10.8)
[2018-11-01 06:29] LABS: HEMATOCRIT 24.4 % (36.0-48.0); HEMOGLOBIN 8.9 g/dL (12-16); RBC 2.44 10x6/uL (4.00-5.40)
[2018-11-01 06:54] LABS: ALBUMIN 1.9 g/dL (3.4-5.0); ANION GAP 13.4 mmol/L (8-16); BILIRUBIN - TOTAL 15.64 mg/dL (0.2-1.3); CARBON DIOXIDE 20.4 mmol/L (21.0-32.0); CREATININE - SERUM 0.9 mg/dL (0.6-1.3); POTASSIUM - SERUM 3.8 mmol/L (3.5-5.1); PROTEIN - SERUM 5.7 g/dL (6.4-8.2)
[2018-11-01 07:50] LABS: INR 1.9 (0.85-1.17); PROTIME 21.2 SECONDS (11.6-15.0)
--- NOTE | 2018-11-01 08:14 | NUR ---
AWAKE AND ALERT. ORIENTED X3. UP TO BR PER SELF, REPORTED SMALL AMOUNT OF LIQUID STOOL. LUNGS ARE CLEAR BILATERALLLY, NO COUGH NOTED. SKIN IS INTACT WTIHOUT REDNESS. ABDOMEN IS DISTENDED, SKIN IS VERY YELLOW TINGED. SL TO LEFT AC IS PATETN WTIHOUT REDNESS AT INSERTION SITE. DENIES NEEDS.
--- NOTE | 2018-11-01 08:19 | NUR ---
OFF UNIT VIA BED FOR PROCEDURE.
--- NOTE | 2018-11-01 09:29 | NUR ---
RETURNED FROM PROCEDURE. A/O X3. BREAKFAST ORDERED.
--- NOTE | 2018-11-01 11:00 | NUR ---
VS ARE STABLE. DENIES NEEDS. NO CHANGES NOTED.
--- NOTE | 2018-11-01 15:00 | NUR ---
AMBULATED IN HALLWAY PER SELF. DENIES NEEDS.
--- NOTE | 2018-11-01 15:05 | MORECARE ---
CASE MANAGEMENT DISCHARGE SUMMARY PATIENT: ADELINA FOSTER UNIT: [id number] ADM DATE: 10/30/18 AGE: 47 : 68 SEX: F ROOM/BED: D.2202 AUTHOR: MODOC PHYSICIAN: REFERRING PHYSICIAN: LEE ANN SILVA MD DATE OF SERVICE: 11/01/18 Discharge Plan Patient Name: ADELINA FOSTER Facility: [facility]:[place] : 1970 Planned Disposition: Home or Self Care Anticipated Discharge Date: Discharge Date: Expected LOS: Initial Reviewer: [email or web address] Initial Review Date: 10/30/2018 Generated: 11/01/18 4:05 pm Comments DCP- Discharge Planning Updated by [email or web address]: Tammy Montelongo on 11/01/18 2:[address] Patient Name: ADELINA FOSTER Admission Status: ER Accout number: [id number] Admission Date: 10-30-2018 : 1970 Admission Diagnosis: Attending: RICARDO, Current LOS: 2 Anticipated DC Date: Planned Disposition: Home or Self Care Primary Insurance: MEDICAID [place] PENDING Discharge Planning Comments: CM met with patient to complete initial dc planning assessment. CM educated patient on the CM role and verbal consent given by patient to complete assessment. Patient lives at home with her 19 year old son. At discharge patient plans to return home and feels this is a safe discharge. Her son will be her dumpster driver home at [place]. CM discussed availability of home health, rehab services, and medical equipment. She stated that she could not afford the new medication that was prescribed for her at [place]. The medicine was xifaxan 550mg po bid, I looked up the drug and printed off the application for assistance to help with the cost of the drug. I explained to her that if she filled it out I could have Dr Perales sign it and fax it off to start the process for help. She stated that her so will have to fill it out for her. Patient denied any other known discharge needs at this time. CM will continue to follow and will assist as needed with dc plans/needs. Identity Access Management Architect: Tammy Montelongo DCPIA - Discharge Planning Initial Assessment Updated by [email or web address]: Tammy Montelongo on 11/01/18 2:59 pm * Is the patient Alert and Oriented? Yes * How many steps to enter\exit or inside your home? 12 * PCP RICARDO * Pharmacy [facility] * Preadmission Environment Home with Family * ADLs Independent * Equipment None * List name and contact numbers for known caregivers / representatives who currently or will assist patient after discharge: DAVID BERMUDEZ [phone] * Verbal permission to speak to the caregivers and representatives has been obtained from the patient. N/A * Community resources currently utilized None * Additional services required to return to the preadmission environment? Yes * Can the patient safely return to the preadmission environment? Yes * Has this patient been hospitalized within the prior 30 days at any hospital? Yes Patient Name: ADELINA FOSTER Page [id number] at 1505 All edits/amendments must be made on the electronic document DICTATION DATE: 11/01/18 1505 ASSOCIATE PROFESSOR OF VIOLIN: LUCÍA 11/01/18 1505 RPT#: [id number] DC DATE: STATUS: ADM IN [facility] [address] [place] [address] END OF REPORT
--- NOTE | 2018-11-01 18:46 | NUR ---
ATE MOST OF SUPPER. NO CHANGES NOTED. DENIES NEEDS.
--- NOTE | 2018-11-01 23:24 | NUR ---
rec'd playing game on phone in bed at chge of shift walking rounds.denies any complanints or discomfort at present time. will continue to monitor for any chges and follow current plan of care.
[2018-11-02 04:42] VITALS: BP 104/60
--- NOTE | 2018-11-02 06:17 | NUR ---
I have reviewed this patient and I concur with the Shift Assessment completed by the Licensed Practical Nurse today this shift.
[2018-11-02 06:52] LABS: BASOPHILS 0.1 % (0-2); EOSINOPHILS 1.4 % (0-7); IMMATURE GRANULOCYTES 1.1 % (0-5); LYMPHOCYTES 13.1 % (15-50); MCH 36.3 pg (26.0-34.0); MCV 100.8 fL (80.0-100.0); MEAN PLATELET VOLUME 10.5 fL (7.4-10.4); MONOCYTES 10.3 % (2-11); PLATELET COUNT 93 10x3/uL (130-400); RBC 2.48 10x6/uL (4.00-5.40); RDW 20.1 % (11.5-14.5)
[2018-11-02 07:10] LABS: ANION GAP 15.3 mmol/L (8-16); BILIRUBIN - TOTAL 16.08 mg/dL (0.2-1.3); CALCIUM 7.9 mg/dL (8.5-10.1); CARBON DIOXIDE 20.1 mmol/L (21.0-32.0); CREATININE - SERUM 0.9 mg/dL (0.6-1.3); POTASSIUM - SERUM 3.4 mmol/L (3.5-5.1); PROTEIN - SERUM 5.6 g/dL (6.4-8.2)
--- NOTE | 2018-11-02 07:32 | NUR ---
PT IS RESTING IN BED WITH EYES CLOSED. RESPIRATIONS ARE EVEN AND UNLABORED. PT IS EASILY AROUSED WITH VERBAL STIMULATION. PT IS YELLOW. SCLERA TO BOTH EYES ARE YELLOW. ABDOMEN IS SLIGHTLY DISTENDED. PT STATES THAT THIS IS AN IMPROVEMENT FROM PREVIOUS. BS ARE ACTIVE. IV TO LEFT AC IS SL BUT FLUSHES WITHOUT DIFFICULTY/PAIN. PT REPORTS ONLY PRESENCE OF NUMBNESS/TINGLING IS TO LEFT UPPER THIGH WHICH IS NORMAL PER PT. PT STATES IT IS "SIATICA". BED IS IN THE LOWEST POSITION. CALL LIGHT AND BEDSIDE TABLE ARE WITHIN REACH. SIDE RAILS X 2. PT DENIES FURTHER NEEDS AT THIS TIME. WILL CONT TO MONITOR.
[2018-11-02 08:06] VITALS: BP 105/55
[2018-11-02 10:59] VITALS: BP 104/57
--- NOTE | 2018-11-02 11:12 | MORECARE ---
CASE MANAGEMENT DISCHARGE SUMMARY PATIENT: ADELINA FOSTER UNIT: [id number] ADM DATE: 10/30/18 AGE: 47 : 68 SEX: F ROOM/BED: D.2202 AUTHOR: MODOC PHYSICIAN: REFERRING PHYSICIAN: LEE ANN SILVA MD DATE OF SERVICE: 11/02/18 Discharge Plan Patient Name: ADELINA FOSTER Facility: [facility]:[place] : 1970 Planned Disposition: Home or Self Care Anticipated Discharge Date: Discharge Date: Expected LOS: Initial Reviewer: [email or web address] Initial Review Date: 10/30/2018 Generated: 11/02/18 12:11 pm Comments DCP- Discharge Planning Updated by [email or web address]: Tammy Montelongo on 11/02/18 10:[address] Patient discharging home today. I will send off the patient assistance program application for her. Patient denies any other needs at this time. DCP- Discharge Planning Updated by [email or web address]: Tammy Montelongo on 11/01/18 2:[address] Patient Name: ADELINA FOSTER Admission Status: ER Accout number: [id number] Admission Date: 10-30-2018 : 1970 Admission Diagnosis: Attending: RICARDO, Current LOS: 2 Anticipated DC Date: Planned Disposition: Home or Self Care Primary Insurance: MEDICAID [place] PENDING Discharge Planning Comments: CM met with patient to complete initial dc planning assessment. CM educated patient on the CM role and verbal consent given by patient to complete assessment. Patient lives at home with her 19 year old son. At discharge patient plans to return home and feels this is a safe discharge. Her son will be her cdl dedicated truck driver home at [place]. CM discussed availability of home health, rehab services, and medical equipment. She stated that she could not afford the new medication that was prescribed for her at [facility]. The medicine was xifaxan 550mg po bid, I looked up the drug and printed off the application for assistance to help with the cost of the drug. I explained to her that if she filled it out I could have Dr Perales sign it and fax it off to start the process for help. She stated that her so will have to fill it out for her. Patient denied any other known discharge needs at this time. CM will continue to follow and will assist as needed with dc plans/needs. Front Desk Supervisor: Tammy Montelongo DCPIA - Discharge Planning Initial Assessment Updated by [email or web address]: Tammy Montelongo on 11/01/18 2:59 pm * Is the patient Alert and Oriented? Yes * How many steps to enter\exit or inside your home? 12 * PCP RICARDO * Pharmacy [facility] * Preadmission Environment Home with Family * ADLs Independent * Equipment None * List name and contact numbers for known caregivers / representatives who currently or will assist patient after discharge: DAVID BERMUDEZ [phone] * Verbal permission to speak to the caregivers and representatives has been obtained from the patient. N/A * Community resources currently utilized None * Additional services required to return to the preadmission environment? Yes * Can the patient safely return to the preadmission environment? Yes * Has this patient been hospitalized within the prior 30 days at any hospital? Yes Last DP export: 11/01/18 2:05 p Patient Name: ADELINA FOSTER Page [id number] at 1112 All edits/amendments must be made on the electronic document DICTATION DATE: 11/02/18 1111 SPECIAL PROCEDURE TECHNOLOGIST: LUCÍA 11/02/18 1111 RPT#: [id number] DC DATE: STATUS: ADM IN [facility] [address] [place] [address] END OF REPORT
--- NOTE | 2018-11-02 11:24 | NUR ---
ALL DISCHARGE INSTRUCTIONS COVERED WITH PT. ALL QUESTIONS ANSWERED. PT DENIES FURTHER QUESTIONS/CONCERNS. PIV TO LEFT AC REMOVED WITH CATHETER TIP INTACT. DRESSING APPLIED. PT DENIES FURTHER NEEDS. ALL DISCHARGE PAPERS SIGNED. PT TO NOTIFY NURSE WHEN READY FOR TRANSPORT OUT OF ROOM.
--- NOTE | 2018-11-02 11:30 | NUR ---
PT TRANSPORTED FROM ROOM VIA WHEELCHAIR [facility]. PT DENIES FURTHER QUESTIONS/CONCERNS/NEEDS.
--- NOTE | 2018-11-03 13:15 | MORECARE ---
CASE MANAGEMENT DISCHARGE SUMMARY PATIENT: ADELINA FOSTER UNIT: [id number] ADM DATE: 10/30/18 AGE: 47 : 68 SEX: F ROOM/BED: D.2202 AUTHOR: MODOC PHYSICIAN: REFERRING PHYSICIAN: LEE ANN SILVA MD DATE OF SERVICE: 11/03/18 Discharge Plan Patient Name: ADELINA FOSTER Facility: [facility]:[place] : 1970 Planned Disposition: Home or Self Care Anticipated Discharge Date: Discharge Date: 11/02/2018 Expected LOS: Initial Reviewer: [email or web address] Initial Review Date: 10/30/2018 Generated: 11/03/18 2:14 pm Comments DCP- Discharge Planning Updated by [email or web address]: Tammy Montelongo on 11/02/18 10:[address] Patient discharging home today. I will send off the patient assistance program application for her. Patient denies any other needs at this time. DCP- Discharge Planning Updated by [email or web address]: Tammy Montelongo on 11/01/18 2:[address] Patient Name: ADELINA FOSTER Admission Status: ER Accout number: [id number] Admission Date: 10-30-2018 : 1970 Admission Diagnosis: Attending: RICARDO, Current LOS: 2 Anticipated DC Date: Planned Disposition: Home or Self Care Primary Insurance: MEDICAID [place] PENDING Discharge Planning Comments: CM met with patient to complete initial dc planning assessment. CM educated patient on the CM role and verbal consent given by patient to complete assessment. Patient lives at home with her 19 year old son. At discharge patient plans to return home and feels this is a safe discharge. Her son will be her lease purchase truck driver home at [place]. CM discussed availability of home health, rehab services, and medical equipment. She stated that she could not afford the new medication that was prescribed for her at [facility]. The medicine was xifaxan 550mg po bid, I looked up the drug and printed off the application for assistance to help with the cost of the drug. I explained to her that if she filled it out I could have Dr Perales sign it and fax it off to start the process for help. She stated that her so will have to fill it out for her. Patient denied any other known discharge needs at this time. CM will continue to follow and will assist as needed with dc plans/needs. Furniture Refinisher: Tammy Montelongo DCPIA - Discharge Planning Initial Assessment Updated by [email or web address]: Tammy Montelongo on 11/01/18 2:59 pm * Is the patient Alert and Oriented? Yes * How many steps to enter\exit or inside your home? 12 * PCP RICARDO * Pharmacy [facility] * Preadmission Environment Home with Family * ADLs Independent * Equipment None * List name and contact numbers for known caregivers / representatives who currently or will assist patient after discharge: DAVID BERMUDEZ [phone] * Verbal permission to speak to the caregivers and representatives has been obtained from the patient. N/A * Community resources currently utilized None * Additional services required to return to the preadmission environment? Yes * Can the patient safely return to the preadmission environment? Yes * Has this patient been hospitalized within the prior 30 days at any hospital? Yes Last DP export: 11/02/18 10:12 a Patient Name: ADELINA FOSTER Page [phone] at 1315 All edits/amendments must be made on the electronic document DICTATION DATE: 11/03/181313 SILO PAINTER: LUCÍA 11/03/181313 [facility] [place]#: [id number] DC DATE:11/02/18 STATUS: DIS IN [facility] [address] [place] [address] END OF REPORT
== END 2018-11-02 11:44 | disposition home or self-care (01) | DRG 432 ==
LOC: D.ER 12:54 → D.MS 14:28 → OBSVTIME 14:28 → D.MS 15:09
PROVIDERS: Emergency Medicine; Family Medicine; General Practice; ADMIT Family Medicine; ATTEND Family Medicine
PROC: 0W9G3ZZ Drainage of Peritoneal Cavity, Percutaneous Approach (ICD-10-PCS; principal; 2018-11-01 08:46)
DX: K70.31 Alcoholic cirrhosis of liver with ascites (principal); E43 Unspecified severe protein-calorie malnutrition; K81.0 Acute cholecystitis; I85.10 Secondary esophageal varices without bleeding; K76.6 Portal hypertension

== ENCOUNTER 2018-11-10 12:54 | Inpatient (IN) | payer OTHER ==
[~2018-11-10] VITALS: Ht 162.6 cm; Wt 68.0 kg
[2018-11-10 14:07] LABS: BASOPHILS 0.1 % (0-2); EOSINOPHILS 0.5 % (0-7); HEMATOCRIT 22.6 % (36.0-48.0); HEMOGLOBIN 8.2 g/dL (12-16); IMMATURE GRANULOCYTES 1.3 % (0-5); LYMPHOCYTES 8.2 % (15-50); MCH 37.6 pg (26.0-34.0); MCHC 36.3 g/dL (31.0-37.0); MCV 103.7 fL (80.0-100.0); MONOCYTES 7.1 % (2-11); NEUTROPHILS 82.8 % (40-80); PLATELET COUNT 97 10x3/uL (130-400); RBC 2.18 10x6/uL (4.00-5.40); RDW 18.7 % (11.5-14.5); WBC 9.6 10x3/uL (4.8-10.8)
[2018-11-10 14:17] LABS: ALBUMIN 2.2 g/dL (3.4-5.0); ANION GAP 16.2 mmol/L (8-16); BILIRUBIN - TOTAL 15.13 mg/dL (0.2-1.3); CALCIUM 8.3 mg/dL (8.5-10.1); CARBON DIOXIDE 20.1 mmol/L (21.0-32.0); CREATININE - SERUM 1.5 mg/dL (0.6-1.3); POTASSIUM - SERUM 3.3 mmol/L (3.5-5.1); PROTEIN - SERUM 6.3 g/dL (6.4-8.2)
[2018-11-10 15:12] VITALS: BP 107/65
[2018-11-10 15:59] LABS: PLATELET ESTIMATE DECREASED
[2018-11-10 16:57] VITALS: BP 105/57
--- NOTE | 2018-11-10 17:10 | NUR ---
TITRATED MORPHINE TO EFFECT. ADMIN 2 MG AND PT STATED, "I THINK THAT'S ENOUGH. I FEEL GOOD" NIKITA SLADE NOTIFED AND 2 MG WASTED WITH GENEVA GUTIERREZ
[2018-11-10 18:32] VITALS: BP 106/60
[2018-11-10 19:18] VITALS: BP 102/55
--- NOTE | 2018-11-10 19:27 | NUR ---
REPORT TO JESUS STEELE BY SBAR FORMAT
--- NOTE | 2018-11-10 19:46 | NUR ---
REC'D TO ROOM 2223 PER STRETCHER FROM ER DEPT A 47 Y/O W/FE PER SERVICES WITH DX.ASCITES, HYPONATREMIA. ALLERGY=CAANTALOUP/MELONS. NKDA. IV PATENT LEFT ARM SALINE LOCK. ASSESSMENT PER ADMIT PACKET. ABDOMEN DISTENDED. INFORMED PATENT WILL BE NPO AFTER MIDNIGHT. SANDWICH TRAY SERVED WITH DRINK 100% CONSUMED. PT'S SON AT BEDSIDE.
[2018-11-10 21:09] VITALS: BP 107/51
[2018-11-10 22:21] VITALS: BP 107/51; BMI 25.8
[2018-11-11] VITALS (11 sets, daily range): BP systolic 95–110; BP diastolic 47–64; Ht 162.6 cm; Wt 68.0 kg
--- NOTE | 2018-11-11 00:55 | NUR ---
UP AD NANI TO BR VOIDS UA SPECIMEN OBTAINED AND SENT TO LAB.NS INFUSING AT 60CC'S/HR.LEFT FOREARM.
[2018-11-11 01:20] LABS: APPEARANCE SL CLDY (CLEAR); BILIRUBIN 2+ (NEGATIVE); COLOR DK YELLOW (YELLOW); GLUCOSE NEGATIVE (NEGATIVE); KETONE NEGATIVE (NEGATIVE); NITRITE NEGATIVE (NEGATIVE); PROTEIN NEGATIVE (NEGATIVE); UROBILINOGEN NORMAL (NORMAL)
[2018-11-11 01:21] LABS: BACTERIA MANY /hpf (NONE SEEN); EPITHELIAL CELLS 0-5 /hpf (0-5); RED CELLS - URINE 0-5 /hpf (0-5); WHITE CELLS - URINE 0-5 /hpf (0-5)
--- NOTE | 2018-11-11 02:55 | NUR ---
C/O ABDOMINAL PAIN RATES PAIN #8 MORPHINE 3MG IVPS GIVEN FOR PAIN CONTROL.
--- NOTE | 2018-11-11 03:51 | NUR ---
IV PLACED ON DELAY PT GETTING HIBICLEANSE SHOWER. SELF CARE.
--- NOTE | 2018-11-11 06:24 | NUR ---
REMAINS NPO HIBICLEANSE SHOWER SELF CARE WITH LINENS CHANGE DONE. NO CHAGES IN ASSESSMENT.
[2018-11-11 06:42] LABS: BASOPHILS 0.1 % (0-2); EOSINOPHILS 0.6 % (0-7); HEMATOCRIT 21.2 % (36.0-48.0); HEMOGLOBIN 7.7 g/dL (12-16); IMMATURE GRANULOCYTES 0.9 % (0-5); LYMPHOCYTES 8.9 % (15-50); MCH 37.2 pg (26.0-34.0); MCHC 36.3 g/dL (31.0-37.0); MCV 102.4 fL (80.0-100.0); MEAN PLATELET VOLUME 11.8 fL (7.4-10.4); MONOCYTES 7.8 % (2-11); NEUTROPHILS 81.7 % (40-80); PLATELET COUNT 94 10x3/uL (130-400); RBC 2.07 10x6/uL (4.00-5.40); RDW 18.9 % (11.5-14.5)
[2018-11-11 06:51] LABS: APTT 43.4 SECONDS (22.8-39.4); INR 1.69 (0.85-1.17); PROTIME 19.3 SECONDS (11.6-15.0)
--- NOTE | 2018-11-11 07:15 | NUR ---
PATIENT BEDSIDE REPORT RECIEVED AT THIS TIME. PATIENT REFUSES BSCDS. NO COMPLAINTS OR SIGNS OF DISTRESS. IV INTACT. CALL LIGHT WITHIN REACH.
[2018-11-11 07:33] LABS: ALBUMIN 2.1 g/dL (3.4-5.0); ANION GAP 13.5 mmol/L (8-16); BILIRUBIN - TOTAL 15.36 mg/dL (0.2-1.3); CALCIUM 7.8 mg/dL (8.5-10.1); MAGNESIUM - SERUM 1.7 mg/dL (1.8-2.4); POTASSIUM - SERUM 3.5 mmol/L (3.5-5.1); PROTEIN - SERUM 5.9 g/dL (6.4-8.2); THYROID STIMULATING HORMONE 5.44 uIU/mL (0.36-3.74)
[2018-11-11 07:35] LABS: CREATININE - SERUM 1.1 mg/dL (0.6-1.3)
--- NOTE | 2018-11-11 07:40 | NUR ---
PATIENT AMMONIA LEVEL IS 47. BETTER THAN LAST CHECKED. ON LACTULOSE AT THIS TIME. PHYSICIAN ALREADY AWARE.
--- NOTE | 2018-11-11 10:24 | NUR ---
PATIENT BLOOD READY BUT PATIENT IN GI LAB AT THIS TIME.
--- NOTE | 2018-11-11 11:00 | NUR ---
PATIENT BACK FROM GI LAB. RECIEVED MORPHINE FOR PAIN. VS STABLE. IV INTACT. AWAKE WITH NO PROBLEMS. WILL CONTINUE TO MONITOR. CALL LIGHT WITHIN REACH.
--- NOTE | 2018-11-11 12:00 | NUR ---
PATIENT FIRST UNIT OF BLOOD STARTED. IV INTACT. VS STABLE. NO COMPLAINTS AT THIS TIME. CALL LIGHT WITHIN REACH.
--- NOTE | 2018-11-11 12:15 | NUR ---
PATIENT VS STABLE WITH NO REACTION TO BLOOD INFUSING AT THIS TIME. IV INTACT. TOLERATED DIET. NO COMPLAINTS. CALL LIGHT WITHIN REACH.
--- NOTE | 2018-11-11 12:38 | MORECARE ---
CASE MANAGEMENT DISCHARGE SUMMARY PATIENT: ADELINA FOSTER UNIT: [id number] ADM DATE: 11/10/18 AGE: 47 : 68 SEX: F ROOM/BED: D.2223 AUTHOR: GATO HASSAN PHYSICIAN: REFERRING PHYSICIAN: FLIP JOHNSON MD DATE OF SERVICE: 11/11/18 Discharge Plan Patient Name: ADELINA FOSTER Facility: [facility]:[place] : 1970 Planned Disposition: Home Anticipated Discharge Date: Discharge Date: Expected LOS: Initial Reviewer: [email or web address] Initial Review Date: 11/11/2018 Generated: 11/11/18 1:38 pm Patient Name: ADELINA FOSTER Page [phone] at 1238 All edits/amendments must be made on the electronic document DICTATION DATE: 11/11/18 1237 GAME TRAPPER: LUCÍA 11/11/18 1237 RPT#: [id number] DC DATE: STATUS: ADM IN [facility] [address] [place] [address] END OF REPORT
--- NOTE | 2018-11-11 12:52 | MORECARE ---
CASE MANAGEMENT DISCHARGE SUMMARY PATIENT: ADELINA FOSTER UNIT: [id number] ADM DATE: 11/10/18 AGE: 47 : 68 SEX: F ROOM/BED: D.2223 AUTHOR: GATO HASSAN PHYSICIAN: REFERRING PHYSICIAN: FLIP JOHNSON MD DATE OF SERVICE: 11/11/18 Discharge Plan Patient Name: ADELINA FOSTER Facility: [facility]:[place] : 1970 Planned Disposition: Home Anticipated Discharge Date: Discharge Date: Expected LOS: Initial Reviewer: [email or web address] Initial Review Date: 11/11/2018 Generated: 11/11/18 1:52 pm DCPIA - Discharge Planning Initial Assessment Updated by [email or web address]: Mouna Horowitz on 11/11/18 12:46 pm * Is the patient Alert and Oriented? Yes * PCP Dr. Britt * Pharmacy [facility] on [facility] * Preadmission Environment Home with Family * ADLs Independent * Equipment None * Other Equipment None * List name and contact numbers for known caregivers / representatives who currently or will assist patient after discharge: Laurence Martinez [facility] - [phone] * Verbal permission to speak to the caregivers and representatives has been obtained from the patient. Yes * Community resources currently utilized None * Additional services required to return to the preadmission environment? No * Can the patient safely return to the preadmission environment? Yes * Has this patient been hospitalized within the prior 30 days at any hospital? Yes Last DP export: 11/11/18 11:38 am Patient Name: ADELINA FOSTRE Page [phone] at 1252 All edits/amendments must be made on the electronic document DICTATION DATE: 11/11/18 1251 PARKING ENFORCEMENT TECHNICIAN: LUCÍA 11/11/18 1251 RPT#: [id number] DC DATE: STATUS: ADM IN [facility] [address] [place] [address] END OF REPORT
--- NOTE | 2018-11-11 12:59 | MORECARE ---
CASE MANAGEMENT DISCHARGE SUMMARY PATIENT: ADELINA FOSTER UNIT: [id number] ADM DATE: 11/10/18 AGE: 47 : 68 SEX: F ROOM/BED: D.2223 AUTHOR: MO,DOC PHYSICIAN: REFERRING PHYSICIAN: FLIP JOHNSON MD DATE OF SERVICE: 11/11/18 Discharge Plan Patient Name: ADELINA FOSTER Facility: [facility]:[place] : 1970 Planned Disposition: Home Anticipated Discharge Date: Discharge Date: Expected LOS: Initial Reviewer: [email or web address] Initial Review Date: 11/11/2018 Generated: 11/11/18 1:59 pm Comments DCP- Discharge Planning Updated by [email or web address]: Mouna Horowitz on 11/11/18 11:[address] Patient Name: ADELINA FOSTER Admission Status: ER Accout number: [id number] Admission Date: 11-10-2018 : 1970 Admission Diagnosis: Attending: FLIP JOHNSON Current LOS: 1 Anticipated DC Date: Planned Disposition: Home Primary Insurance: [employer] MEDICAID Discharge Planning Comments: CM met with patient to complete initial dc planning assessment. CM educated patient on the CM role and verbal consent given by patient to complete assessment. Patient lives at home with her son (Laurence). At discharge patient plans to return and feels this is a safe discharge. CM discussed availability of home health, rehab services, and medical equipment. Patient denied known discharge needs at this time. Patient has a Managed Medicaid and states that she was able to get her lactulose RX. (Lactulose is 15 dollars for 30 day supply and 30 dollars for 90 day supply at [facility] for miller pay). She just couldn't get the Rifaximin. Orly (SAMANTHA) had faxed for assistance with this medication to [facility]. I spoke with Anam at the [employer] [phone] and she states that the patient was approved for medication and it was shipped to her home today and it will be at her home in 3-5 business days. I informed the patient this, so she will watch for the shipment at the beginning of next week. CM will continue to follow and will assist as needed with dc plans/needs. Care Program Resident: Mouna Carlos Manuel DCPIA - Discharge Planning Initial Assessment Updated by [email or web address]: Mouna Horowitz on 11/11/18 12:46 pm * Is the patient Alert and Oriented? Yes * PCP Dr. Britt * Pharmacy [facility] [address] * Preadmission Environment Home with Family * ADLs Independent * Equipment None * Other Equipment None * List name and contact numbers for known caregivers / representatives who currently or will assist patient after discharge: Laurence Martinez [facility] [phone] * Verbal permission to speak to the caregivers and representatives has been obtained from the patient. Yes * Community resources currently utilized None * Additional services required to return to the preadmission environment? No * Can the patient safely return to the preadmission environment? Yes * Has this patient been hospitalized within the prior 30 days at any hospital? Yes Last DP export: 11/11/18 11:52 am Patient Name: ADELINA FOSTER Page [phone] at 1259 All edits/amendments must be made on the electronic document DICTATION DATE: 11/11/18 1259 CARTON PACKAGING MACHINE OPERATOR: LUCÍA 11/11/18 1259 RPT#: [id number] DC DATE: STATUS: ADM IN [facility] [address] [place] [address] END OF REPORT
--- NOTE | 2018-11-11 14:30 | NUR ---
FIRST UNIT OF BLOOD COMPLETE. VS STABLE. NO COMPLAINTS OR SIGNS OF DISTRESS. IV INTACT. CALL LIGHT WITHIN REACH.
--- NOTE | 2018-11-11 14:45 | NUR ---
PATIENT SECOND UNIT STARTED AT THIS TIME. IV INTACT. VS STABLE. PATIENT HAS NO COMPLAINTS. FAMILY AT BEDSIDE. CALL LIGHT WITHIN REACH.
--- NOTE | 2018-11-11 15:00 | NUR ---
PATIENT BLOOD INFUSING. IV INTACT. VS STABLE. NO COMPLAINTS OR SIGNS OF DISTRESS. FAMILY AT BEDSIDE. CALL LIGHT WITHIN REACH.
--- NOTE | 2018-11-11 16:58 | NUR ---
PATIENT BLOOD COMPLETE AT THIS TIME. IV INTACT. NO COMPLAINTS. VS STABLE. CALL LIGHT WITHIN REACH.
--- NOTE | 2018-11-11 18:45 | NUR ---
PATIENT IN BED WITH IV INTACT. NO COMPLAINTS OR SIGNS OF DISTRESS. FAMILY AT BEDSIDE. CALL LIGHT WITHIN REACH.
--- NOTE | 2018-11-11 19:35 | NUR ---
PT SITTING UP IN BED WITHOUT DISTRESS, AOX4. IV LEFT FA INFUSING NS @ 60. STATES SOME PAIN TO ABD. SON AT BEDSIDE. DENIES NEEDS AT THIS TIME. CL IN REACH, WILL CTM
--- NOTE | 2018-11-11 21:20 | NUR ---
IV LEFT FA INFILTRATED, DC'D WITH CATHETER INTACT. RESITED 22G IV LEFT AC X1 ATTEMPT. GAVE MORPHINE ORDERED. NO OTHER NEEDS AT THIS TIME. CL IN REACH
[2018-11-12] VITALS: BP 96/66
[2018-11-12 04:00] VITALS: BP 110/60
[2018-11-12 06:31] LABS: BASOPHILS 0.1 % (0-2); EOSINOPHILS 0.7 % (0-7); IMMATURE GRANULOCYTES 0.7 % (0-5); LYMPHOCYTES 10.1 % (15-50); MCH 35.1 pg (26.0-34.0); MCHC 36.4 g/dL (31.0-37.0); MEAN PLATELET VOLUME 11.9 fL (7.4-10.4); NEUTROPHILS 80.4 % (40-80); PLATELET COUNT 88 10x3/uL (130-400); RDW 21.7 % (11.5-14.5); WBC 8.8 10x3/uL (4.8-10.8)
[2018-11-12 06:46] LABS: INR 1.82 (0.85-1.17); PROTIME 20.4 SECONDS (11.6-15.0)
[2018-11-12 06:48] LABS: HEMATOCRIT 27.2 % (36.0-48.0); HEMOGLOBIN 9.9 g/dL (12-16); MCV 96.5 fL (80.0-100.0); RBC 2.82 10x6/uL (4.00-5.40)
[2018-11-12 07:05] LABS: CALCIUM 8.2 mg/dL (8.5-10.1); CARBON DIOXIDE 20.4 mmol/L (21.0-32.0); CHLORIDE - SERUM 101 mmol/L (98-107); GLUCOSE 121 mg/dL (74-106); MAGNESIUM - SERUM 1.9 mg/dL (1.8-2.4); POTASSIUM - SERUM 3.8 mmol/L (3.5-5.1); SODIUM 132 mmol/L (136-145); eGFR NON AFRICAN AMERICAN 81 mL/min (90-120)
[2018-11-12 07:10] LABS: CALC OSMOLALITY 265 mosm/kg (275-300); CREATININE - SERUM 0.8 mg/dL (0.6-1.3); PHOSPHOROUS 2.5 mg/dL (2.5-4.9); UREA NITROGEN 13 mg/dL (7-18)
--- NOTE | 2018-11-12 07:30 | NUR ---
PT RESTING IN BED. AROUSED BY VERBAL STIMULI. NO S/S OF ACUTED DISTRESS. CL IN PLACE.
[2018-11-12 08:01] VITALS: BP 104/58
[2018-11-12 13:00] VITALS: BP 114/68
--- NOTE | 2018-11-12 16:15 | NUR ---
PT CO OF NAUSEA AND MEDS NOT WORKING. CALLED EDGAR GARZA. X1 ORDER FOR PHENERGAN, STAT KUB, ZOFRAN DRIP ORDERED. STARTED ZOFRAN DRIP. PT DENIES N/V. HELD PHENERGAN AT THIS TIME. NO S/S OF ACUTE DISTRESS. CL IN PLACE.
[2018-11-12 16:41] VITALS: BP 111/60
--- NOTE | 2018-11-12 18:45 | NUR ---
PT UNHOOKED TAKING A SHOWER. NO S/S OF ACUTE DISTRESS. CL IN PLACE.
--- NOTE | 2018-11-12 19:15 | NUR ---
RECEIVED CARE FROM DAY NURSE. OUT OF SHOWER AND CONNECTED TO IV FLUIDS. SON AT SIDE. NO NEEDS VOICED AT THIS TIME.
[2018-11-12 20:00] VITALS: BP 116/71
[2018-11-13] VITALS: BP 108/65
--- NOTE | 2018-11-13 00:32 | NUR ---
I have reviewed this patient and I concur with the Shift Assessment completed by the Licensed Practical Nurse today this shift.
[2018-11-13 04:00] VITALS: BP 112/71
[2018-11-13 05:30] LABS: BASOPHILS 0.1 % (0-2); EOSINOPHILS 0.7 % (0-7); HEMATOCRIT 26.2 % (36.0-48.0); HEMOGLOBIN 9.5 g/dL (12-16); IMMATURE GRANULOCYTES 1.2 % (0-5); LYMPHOCYTES 10.7 % (15-50); MCH 35.4 pg (26.0-34.0); MCHC 36.3 g/dL (31.0-37.0); MCV 97.8 fL (80.0-100.0); MEAN PLATELET VOLUME 11.3 fL (7.4-10.4); MONOCYTES 7.6 % (2-11); NEUTROPHILS 79.7 % (40-80); PLATELET COUNT 84 10x3/uL (130-400); RBC 2.68 10x6/uL (4.00-5.40); RDW 22.1 % (11.5-14.5); WBC 8.6 10x3/uL (4.8-10.8)
[2018-11-13 05:50] LABS: ANION GAP 12.6 mmol/L (8-16); CALCIUM 8.2 mg/dL (8.5-10.1); CARBON DIOXIDE 21.7 mmol/L (21.0-32.0); CREATININE - SERUM 0.9 mg/dL (0.6-1.3); MAGNESIUM - SERUM 1.8 mg/dL (1.8-2.4); PHOSPHOROUS 2.4 mg/dL (2.5-4.9); POTASSIUM - SERUM 3.3 mmol/L (3.5-5.1)
[2018-11-13 06:02] LABS: INR 1.84 (0.85-1.17); PROTIME 20.6 SECONDS (11.6-15.0)
--- NOTE | 2018-11-13 08:04 | NUR ---
PT RESTING IN BED. AROUSED BY VERBAL STIMULI. PT DENIES HAVING A BM. NO S/S OF ACUTE DISTRESS. CL IN PLACE.
[2018-11-13 08:13] VITALS: BP 112/55
[2018-11-13 13:21] VITALS: BP 106/65
[2018-11-13 16:11] VITALS: BP 111/64
--- NOTE | 2018-11-13 18:43 | NUR ---
PT RESTING IN BED. PT STATES, "STILL NO BM" MORPHINE GIVEN FOR PAIN PER MD ORDER. NO S/S OF ACUTE DISTRESS. CL IN PLACE.
--- NOTE | 2018-11-13 19:15 | NUR ---
RECEIVED CARE FROM DAY NURSE. UP AMBULATING IN ROOM. NO NEEDS VOICED AT THIS TIME. CALL LIGHT AT SIDE. IV INFUSING PER ORDER TO PATENT LEFT AC.
[2018-11-13 19:45] VITALS: BP 126/71
--- NOTE | 2018-11-13 20:30 | NUR ---
IV TO LEFT AC LEAKING AT INSERTION SITE. DC'D WITH TIP INTACT. RESTIED TO RIGHT HAND 22 GAUGE X2 STICKS WITH GOOD BLOOD RETURN NOTED.
[2018-11-14] VITALS: BP 110/66
--- NOTE | 2018-11-14 00:21 | NUR ---
I have reviewed this patient and I concur with the Shift Assessment completed by the Licensed Practical Nurse today this shift.
[2018-11-14 04:00] VITALS: BP 108/69
[2018-11-14 06:07] LABS: BASOPHILS 0.1 % (0-2); EOSINOPHILS 0.7 % (0-7); HEMATOCRIT 26.4 % (36.0-48.0); HEMOGLOBIN 9.4 g/dL (12-16); IMMATURE GRANULOCYTES 0.5 % (0-5); LYMPHOCYTES 10.2 % (15-50); MCH 35.3 pg (26.0-34.0); MCHC 35.6 g/dL (31.0-37.0); MCV 99.2 fL (80.0-100.0); MONOCYTES 7.7 % (2-11); NEUTROPHILS 80.8 % (40-80); PLATELET COUNT 81 10x3/uL (130-400); RBC 2.66 10x6/uL (4.00-5.40); RDW 22.5 % (11.5-14.5)
[2018-11-14 06:17] LABS: INR 1.88 (0.85-1.17)
[2018-11-14 06:32] LABS: CALC OSMOLALITY 272 mosm/kg (275-300); CARBON DIOXIDE 20.6 mmol/L (21.0-32.0); CHLORIDE - SERUM 106 mmol/L (98-107); CREATININE - SERUM 0.8 mg/dL (0.6-1.3); GLUCOSE 110 mg/dL (74-106); PHOSPHOROUS 2.3 mg/dL (2.5-4.9); POTASSIUM - SERUM 3.6 mmol/L (3.5-5.1); SODIUM 137 mmol/L (136-145); eGFR NON AFRICAN AMERICAN 81 mL/min (90-120)
[2018-11-14 06:34] LABS: UREA NITROGEN 7 mg/dL (7-18)
--- NOTE | 2018-11-14 07:35 | NUR ---
ALERT AND ORIENTED, RESTING IN BED. DENIES ANY NEEDS AT THIS TIME. CALL LIGHT IN REACH. WILL CONTINUE TO MONITOR.
[2018-11-14 07:40] LABS: PLATELET ESTIMATE DECREASED
[2018-11-14 08:28] VITALS: BP 106/67
[2018-11-14 12:51] VITALS: BP 117/68
[2018-11-14 16:38] VITALS: BP 100/68
--- NOTE | 2018-11-14 18:28 | NUR ---
ALERT AND ORIENTED, RESTING IN BED. FAMILY AT BEDSIDE. DENIES ANY NEEDS AT THIS TIME. CALL LIGHT IN REACH. WILL CONTINUE TO MONITOR.
--- NOTE | 2018-11-14 18:45 | NUR ---
I have reviewed this patient and I concur with the Shift Assessment completed by the Licensed Practical Nurse today this shift.
--- NOTE | 2018-11-14 19:15 | NUR ---
PT ALERT WHEN ENTERING THE ROOM. PATIENT IS ORIENTED BUT TO SELF TIME AND PLACE BUT HAS MOMENTS OF WORD SALAD. SON AT BEDSIDE. PATIENT IS JAUNDICED WITH YELLOW SCLEARA PREVALENT. ABDOMEN WITH DISTENSION NOTED. ACTIVE BOWEL SOUNDS. PATIENT STATES SHE HASNT HAD A BOWEL MOVEMENT IN DAYS WHEN REMINDING PATIENT THAT A STOOL SAMPLE IS NEEDED. DENIES PAIN AND DISCOMFORT AT THIS TIME. HAS CALL LIGHT IN REACH. CPOC.
[2018-11-14 20:00] VITALS: BP 101/66
--- NOTE | 2018-11-14 21:20 | NUR ---
ADMINISTERING MEDS WHEN PATIENT STATED THAT SHE WAS NOT GOING TO TAKE 60 ML THAT SHE WOULD ONLY TAKE 30 OF CHRONULAC. . PATIENT AND THIS NURSE ARE DISCUSSING THIS, COGNOS ARCHITECT CALLS AND STATES SHE IS CHANGING THE MEDICATION ORDER TO 30 ML QID FROM 60 ML TID. PATIENT THEN STATES "WELL IM STILL GOING TO TAKE IT 3 TIMES A DAY." PROVIDED EDUCATION ABOUT IMPORTANCE OF MEDICATION BUT PATIENT NOT RECEPTIVE TO INFORMATION. TAKES PO MEDS AND 30 ML OF CHRONULAC. DENIES FURTHER NEEDS AT THIS TIME.
[2018-11-15 04:00] VITALS: BP 113/67
--- NOTE | 2018-11-15 04:08 | NUR ---
PATIENT HAD SMALL BM BUT SPECIMEN WAS MIXED WITH LOTS OF URINE. PATIENT STATES SHE THINKS SHE CAN GO AGAIN. WAITING SAMPLE.
[2018-11-15 05:39] LABS: BASOPHILS 0.1 % (0-2); EOSINOPHILS 0.9 % (0-7); HEMATOCRIT 27.4 % (36.0-48.0); HEMOGLOBIN 9.8 g/dL (12-16); IMMATURE GRANULOCYTES 0.4 % (0-5); LYMPHOCYTES 11.9 % (15-50); MCH 35.8 pg (26.0-34.0); MCHC 35.8 g/dL (31.0-37.0); MEAN PLATELET VOLUME 11.5 fL (7.4-10.4); MONOCYTES 8.7 % (2-11); PLATELET COUNT 83 10x3/uL (130-400); RBC 2.74 10x6/uL (4.00-5.40); RDW 22.7 % (11.5-14.5); WBC 6.8 10x3/uL (4.8-10.8)
[2018-11-15 05:57] LABS: INR 1.84 (0.85-1.17); PROTIME 20.6 SECONDS (11.6-15.0)
[2018-11-15 06:01] LABS: CALCIUM 8.6 mg/dL (8.5-10.1); MAGNESIUM - SERUM 1.6 mg/dL (1.8-2.4); PHOSPHOROUS 2.3 mg/dL (2.5-4.9)
--- NOTE | 2018-11-15 07:15 | NUR ---
ALERT AND ORIENTED. LUNGS CLEAR BILATERALLY IN ALL ESPINOSA. HEART SOUNDS S1 AND S2 HEARD IN ALL ESPINOSA. BOWEL SOUNDS ACTIVE X 4. SKIN INTACT WITHOUT REDNESS. IV TO RIGHT HAND PATENT WITHOUT REDNESS. AWARE OF NEED FOR STOOL SAMPLE. VERBALIZED UNDERSTANDING. DENIES NEEDS. BED LOW. CALL CREWS AND PERSONAL ITEMS IN REACH. WILL CONTINUE TO MONITOR.
[2018-11-15 08:37] VITALS: BP 112/68
--- NOTE | 2018-11-15 10:10 | NUR ---
RESTING IN BED. DENIES NEEDS. WILL CONTINUE TO MONITOR.
--- NOTE | 2018-11-15 11:00 | NUR ---
EDUCATION PROVIDED ON NEED TO STAY NPO UNTIL PIPIDA WHICH WILL BE AROUND 1400 OR 1500. VERBALIZED UNDERSTANDING.
[2018-11-15 12:06] VITALS: BP 116/71
--- NOTE | 2018-11-15 12:30 | NUR ---
PATIENT REFUSED LEVAQUIN AND CHRONULAC. STATES DR TOLD HER COULD NOT HAVE ANYTHING BY MOUTH UNTIL AFTER PIPIDA. ATTEMPTED TO PROVIDE EDUCATION THAT PATIENT COULD TAKE MEDS. REFUSED ANYWAY.
--- NOTE | 2018-11-15 13:15 | NUR ---
Nutrition follow-up: Pt now NPO for Pipida scan PO intake of low sodium diet has been ~50% of meals +BM Labs reviewed Wt: 150# Pt continues with persistent nausea, dry heaves RDN following.
[2018-11-15 14:33] LABS: APPEARANCE CLEAR (CLEAR); COLOR DK YELLOW (YELLOW); GLUCOSE NEGATIVE (NEGATIVE); KETONE NEGATIVE (NEGATIVE); NITRITE NEGATIVE (NEGATIVE); PROTEIN NEGATIVE (NEGATIVE)
[2018-11-15 14:34] LABS: BACTERIA MANY /hpf (NONE SEEN); BILIRUBIN 1+ (NEGATIVE); EPITHELIAL CELLS RARE /hpf (0-5); MUCUS <1+ /lpf (NONE SEEN); RED CELLS - URINE NONE SEEN /hpf (0-5); UROBILINOGEN NORMAL (NORMAL); WHITE CELLS - URINE NSEEN /hpf (0-5)
--- NOTE | 2018-11-15 15:41 | NUR ---
REFUSES TELEMETRY RETURNED TO Mar,.
[2018-11-15 17:10] VITALS: BP 103/59
--- NOTE | 2018-11-15 19:57 | NUR ---
ASSESSMENT PER FLOWSHEET RETURNS TO ROOM PER W/C FROM RADIOLOGY. C/O PAIN IN ABDOMEN. MORPHINE 3MG SIVP GIVEN FOR PAIN CONTROL. IV RECONNECTED WITH NS AT 60CC'S/HR ZOFRAN GTT AT 4.7CC'S/HR AND K+ RIDER AT 30CC'S/HR. PATIENT REFUSES AND MORE RIDERS K+40MEQ PO GIVEN CRUSHED IN APPLESAUCE.
[2018-11-15 21:14] VITALS: BP 130/74
--- NOTE | 2018-11-15 21:15 | NUR ---
MEDS GIVEN PER MAY. K+ RIDER COMPLETED AND TURNED OFF.
--- NOTE | 2018-11-16 | NUR ---
EYES CLOSED ESPIRATIONS WITH EASE AND UNLABORED.
[2018-11-16 01:44] VITALS: BP 103/57
[2018-11-16 04:38] VITALS: BP 110/65
[2018-11-16 06:29] LABS: BASOPHILS 0.2 % (0-2); HEMATOCRIT 25.7 % (36.0-48.0); HEMOGLOBIN 9.2 g/dL (12-16); IMMATURE GRANULOCYTES 0.5 % (0-5); LYMPHOCYTES 10.6 % (15-50); MCH 35.5 pg (26.0-34.0); MCHC 35.8 g/dL (31.0-37.0); MCV 99.2 fL (80.0-100.0); MEAN PLATELET VOLUME 11.5 fL (7.4-10.4); MONOCYTES 10.5 % (2-11); NEUTROPHILS 77.2 % (40-80); PLATELET COUNT 76 10x3/uL (130-400); RBC 2.59 10x6/uL (4.00-5.40); RDW 22.8 % (11.5-14.5); WBC 6.2 10x3/uL (4.8-10.8)
[2018-11-16 06:44] LABS: ANION GAP 15.1 mmol/L (8-16); CALCIUM 8.4 mg/dL (8.5-10.1); CARBON DIOXIDE 23.1 mmol/L (21.0-32.0); MAGNESIUM - SERUM 1.4 mg/dL (1.8-2.4); PHOSPHOROUS 2.7 mg/dL (2.5-4.9); POTASSIUM - SERUM 3.2 mmol/L (3.5-5.1)
[2018-11-16 07:04] LABS: INR 1.96 (0.85-1.17); PROTIME 21.6 SECONDS (11.6-15.0)
[2018-11-16 07:06] LABS: PLATELET ESTIMATE DECREASED
--- NOTE | 2018-11-16 07:10 | NUR ---
PT SITTING UP IN BED. NO ACUTE DISTRESS NOTED AT THIS TIME. JAUNDICE NOTED. PT REPORTS PAIN 6/10 AT THIS TIME. EDUCATED PT REGARDING NEXT TIME DOSE DUE PER MD ORDERS. PT VOICES UNDERSTANDING. IV TO RIGHT HAND WITH NS @ 60ML/HR INFUSING VIA PUMP. SITE WITHOUT REDNESS OR EDEMA. DENIES FURTHER NEEDS AT THIS TIME. CL WITHIN REACH. ENCOURAGED TO CALL WITH NEEDS. CONTINUE POC
[2018-11-16 08:24] VITALS: BP 130/64
[2018-11-16 12:19] VITALS: BP 107/61
[2018-11-16 17:03] VITALS: BP 114/64
--- NOTE | 2018-11-16 20:00 | NUR ---
ASSESSMENT PER FLOWSHEET. IV PATENT RT ARM OF NS AT 60CC'S/HR ZOFRAN GTT AT 4.7CC'S/HR SITE CLEAR. UP AD NANI TO BR VOIDS AND HAD BM. SON AT BESIDE. REFUSES SCD'S. SR UP X2 CALL LIGHT WITHIN REACH.
[2018-11-16 21:20] VITALS: BP 100/55
--- NOTE | 2018-11-16 22:00 | NUR ---
MEDS GIVEN PER FLOWSHEET.UP TO BR VOIDS WELL.
--- NOTE | 2018-11-17 00:45 | NUR ---
EYES CLOSED RESPIRATIONS WITH EASE AND UNLABORED.
[2018-11-17 05:18] VITALS: BP 131/65
[2018-11-17 05:38] LABS: BASOPHILS 0.2 % (0-2); EOSINOPHILS 0.8 % (0-7); HEMATOCRIT 23.3 % (36.0-48.0); HEMOGLOBIN 8.4 g/dL (12-16); IMMATURE GRANULOCYTES 0.5 % (0-5); MCH 35.6 pg (26.0-34.0); MCHC 36.1 g/dL (31.0-37.0); MCV 98.7 fL (80.0-100.0); MEAN PLATELET VOLUME 11.4 fL (7.4-10.4); MONOCYTES 10.7 % (2-11); NEUTROPHILS 75.8 % (40-80); PLATELET COUNT 70 10x3/uL (130-400); RBC 2.36 10x6/uL (4.00-5.40); RDW 22.7 % (11.5-14.5); WBC 6.1 10x3/uL (4.8-10.8)
[2018-11-17 06:03] LABS: ALBUMIN 1.8 g/dL (3.4-5.0); ANION GAP 13.3 mmol/L (8-16); BILIRUBIN - TOTAL 19.54 mg/dL (0.2-1.3); CALCIUM 7.9 mg/dL (8.5-10.1); CARBON DIOXIDE 23.8 mmol/L (21.0-32.0); POTASSIUM - SERUM 3.1 mmol/L (3.5-5.1); PROTEIN - SERUM 5.5 g/dL (6.4-8.2)
[2018-11-17 09:22] VITALS: BP 98/55
--- NOTE | 2018-11-17 12:32 | NUR ---
PT RESTING IN BED. NO SIGNS OF DISTRESS. IV TO RIGHT FORARM PATENT NO REDNESS OR TENDERNESS. HAS BANDAGE TO RIGHT SIDE CLEAN AND INTACT. DENIES ANY FURTHER NEED AT THIS TIME. CALL LIGHT IN REACH. BED LOW POSITION.
[2018-11-17 14:12] VITALS: BP 93/54
[2018-11-17 16:09] VITALS: BP 94/47
--- NOTE | 2018-11-17 19:24 | NUR ---
I have reviewed this patient and I concur with the Shift Assessment completed by the Licensed Practical Nurse today this shift.
--- NOTE | 2018-11-17 19:45 | NUR ---
A&O X 4, AMBULATORY IN ROOM. BLOOD PRESSURE RECHECKED: 97/56. REPORTS FREQUENT DIARRHEA AND PAIN OF 4-5/10. DENIES NEEDS FOR PRN PAIN MED BECAUSE IT MAKES HER, "WEIRD." NO NEEDS AT THIS TIME, WILL CONTINUE TO MONITOR.
[2018-11-17 20:55] VITALS: BP 82/44
[2018-11-18 00:18] VITALS: BP 92/50
[2018-11-18 05:18] VITALS: BP 103/59
[2018-11-18 06:07] LABS: BASOPHILS 0.1 % (0-2); EOSINOPHILS 0.6 % (0-7); HEMATOCRIT 23.1 % (36.0-48.0); HEMOGLOBIN 8.4 g/dL (12-16); IMMATURE GRANULOCYTES 0.4 % (0-5); LYMPHOCYTES 11.5 % (15-50); MCH 35.7 pg (26.0-34.0); MCHC 36.4 g/dL (31.0-37.0); MCV 98.3 fL (80.0-100.0); MEAN PLATELET VOLUME 11.6 fL (7.4-10.4); MONOCYTES 9.4 % (2-11); PLATELET COUNT 78 10x3/uL (130-400); RBC 2.35 10x6/uL (4.00-5.40); RDW 22.8 % (11.5-14.5); WBC 6.7 10x3/uL (4.8-10.8)
[2018-11-18 06:27] LABS: ALBUMIN 1.8 g/dL (3.4-5.0); ANION GAP 13.8 mmol/L (8-16); BILIRUBIN - TOTAL 18.69 mg/dL (0.2-1.3); CALCIUM 8.1 mg/dL (8.5-10.1); CARBON DIOXIDE 22.3 mmol/L (21.0-32.0); CREATININE - SERUM 0.9 mg/dL (0.6-1.3); MAGNESIUM - SERUM 1.6 mg/dL (1.8-2.4); PHOSPHOROUS 2.3 mg/dL (2.5-4.9); POTASSIUM - SERUM 3.1 mmol/L (3.5-5.1); PROTEIN - SERUM 5.6 g/dL (6.4-8.2)
--- NOTE | 2018-11-18 07:17 | NUR ---
I have reviewed this patient and I concur with the Shift Assessment completed by the Licensed Practical Nurse today this shift.
--- NOTE | 2018-11-18 07:32 | NUR ---
PT SITTING UP IN BED. NO ACUTE DISTRESS NOTED. REPORTS PAIN 4/10 AT THIS TIME. IV TO RIGHT FOREARM WITH NS @ 60ML/HR, ZOFRAN @ 4.7ML/HR INFUSING VIA PUMP. SITE WITHOUT REDNESS OR EDEMA. PT REPORTS BM THIS AM. DENIES FURTHER NEEDS AT THIS TIME. CL WITHIN REACH. ENCOURAGED TO CALL WITH NEEDS. CONTINUE POC
[2018-11-18 07:53] VITALS: BP 90/54
[2018-11-18 08:38] LABS: PLATELET ESTIMATE DECREASED; PLATELET MORPHOLOGY NORMAL PLT MORPH
[2018-11-18 11:10] LABS: ANA REFLEX - DIRECT Negative (Negative)
[2018-11-18 11:18] LABS: INR 2.06 (0.85-1.17); PROTIME 22.5 SECONDS (11.6-15.0)
[2018-11-18 12:30] VITALS: BP 103/63
--- NOTE | 2018-11-18 14:03 | NUR ---
Nutrition follow-up: Diet: low sodium PO intake ~40% average of last 9 meals labs reviewed Pt with distended abdomen; c/o very painful. Wt: 150# Pt is now assessed with severe malnutrition of chronic illness R/T hepatic cirrhosis with recurring ascites AAEB: 1. < 75% intake of estimated energy needs for > 1 month 2. severe fluid accumulation noted 3. observed loss of subcutaneous fat, muscle to all extremeties Will continue to provide food choices and honor food preferences within diet restrictions. Will offer nutritional supplements. RDN following.
[2018-11-18 17:49] VITALS: BP 108/61
[2018-11-18 20:00] VITALS: BP 96/54
[2018-11-19] VITALS (8 sets, daily range): BP systolic 90–149; BP diastolic 46–75
--- NOTE | 2018-11-19 01:29 | NUR ---
SITTING UP IN BED, A&O X 4, SON AT BEDSIDE. AMBULATORY AD NANI. REINFORCED TEACHING OF CURRENT DIET. NO COMPLAINTS OF PAIN/NAUSEA. UNHOOKED FROM IV FLUIDS, SALINE LOCKED AND COVERED FOR PT BATHING. DENIES FURTHER NEEDS AT THIS TIME.
--- NOTE | 2018-11-19 03:28 | NUR ---
I have reviewed this patient and I concur with the Shift Assessment completed by the Licensed Practical Nurse today this shift.
[2018-11-19 07:24] LABS: BASOPHILS 0.1 % (0-2); EOSINOPHILS 0.7 % (0-7); HEMATOCRIT 23.5 % (36.0-48.0); HEMOGLOBIN 8.4 g/dL (12-16); IMMATURE GRANULOCYTES 0.8 % (0-5); LYMPHOCYTES 11.1 % (15-50); MCH 36.2 pg (26.0-34.0); MCHC 35.7 g/dL (31.0-37.0); MEAN PLATELET VOLUME 11.9 fL (7.4-10.4); MONOCYTES 10.6 % (2-11); NEUTROPHILS 76.7 % (40-80); RBC 2.32 10x6/uL (4.00-5.40); RDW 23.6 % (11.5-14.5)
[2018-11-19 07:35] LABS: MCV 101.3 fL (80.0-100.0); PLATELET COUNT 96 10x3/uL (130-400); WBC 8.6 10x3/uL (4.8-10.8)
--- NOTE | 2018-11-19 07:40 | NUR ---
PT SITTING UP IN BED. NO ACUTE DISTRESS NOTED AT THIS TIME. PT REPORTS PAIN 3/10 AT THIS TIME, BUT HAVING FEELINGS OF "UNEASYNESS" PT REPORTS IF SITTING UP IT HELPS TO ALLEVIATE THE PAIN AND HELPS WITH NAUSEATED FEELING. PT QUESTIONS REGARDING PARACENTESIS THIS AM. INFORMED PT WOULD SPEAK WITH IR AND FIND OUT WHEN PROCEDURE WOULD BE COMPLETED. PT VOICES UNDERSTANDING. IV TO RIGHT FOREARM WITH NS @ 60 ML/HR INFUSING VIA PUMP. SITE WITHOUT REDNESS OR EDEMA. ABDOMEN REMAINS DISTENDED AT THIS TIME. NPO SINCE MIDNIGHT. PT ASSISTED TO SHOWER FOR HIBICLEOuner BATH. DENIES FURTHER NEEDS AT THIS TIME. CL WITHIN REACH. ENCOURAGED TO CALL WITH NEEDS. CONTINUE POC
[2018-11-19 07:45] LABS: ALBUMIN 1.8 g/dL (3.4-5.0); ANION GAP 15.4 mmol/L (8-16); BILIRUBIN - TOTAL 16.36 mg/dL (0.2-1.3); CALCIUM 8.3 mg/dL (8.5-10.1); CARBON DIOXIDE 19.1 mmol/L (21.0-32.0); CREATININE - SERUM 0.9 mg/dL (0.6-1.3); MAGNESIUM - SERUM 1.8 mg/dL (1.8-2.4); POTASSIUM - SERUM 3.5 mmol/L (3.5-5.1); PROTEIN - SERUM 5.5 g/dL (6.4-8.2)
[2018-11-19 08:03] LABS: INR 2.02 (0.85-1.17); PROTIME 22.2 SECONDS (11.6-15.0)
--- NOTE | 2018-11-19 09:25 | NUR ---
PT TAKEN VIA BED TO IR FOR PROCEDURE. PLASMA INFUSING PER MD ORDERS. NO ACUTE DISTRESS NOTED.
--- NOTE | 2018-11-19 10:45 | NUR ---
PT RETURNED FROM IR. NO ACUTE DISTRESS NOTED AT THIS TIME. ALBUMIN INFUSING. VITAL SIGNS TO BE MONITORED.
[2018-11-19 11:10] LABS: MITOCHONDRIAL ANTIBODY <20.0 Units (0.0-20.0)
[2018-11-19] MEDS ORDERED: LASIX40 MG PO (13:17)
[2018-11-19] MEDS ORDERED: CHRONULAC30 ML PO (13:18)
[2018-11-19] MEDS ORDERED: FOLATE0.4 MG PO (13:19)
--- NOTE | 2018-11-19 14:01 | MORECARE ---
CASE MANAGEMENT DISCHARGE SUMMARY PATIENT: ADELINA FOSTER UNIT: [id number] ADM DATE: 11/10/18 AGE: 48 : 68 SEX: F ROOM/BED: D.2223 AUTHOR: MO,DOC PHYSICIAN: REFERRING PHYSICIAN: FLIP JOHNSON MD DATE OF SERVICE: 11/19/18 Discharge Plan Patient Name: ADELINA FOSTER Facility: [facility]:[place] : 1970 Planned Disposition: Home Anticipated Discharge Date: Discharge Date: Expected LOS: Initial Reviewer: [email or web address] Initial Review Date: 11/11/2018 Generated: 11/19/18 3:01 pm Comments DCP- Discharge Planning Updated by [email or web address]: Mouna Horowitz on 11/19/18 12:[address] Received order for discharge. She is up in room packing her belongings. She had moderate sedation today, so she will need a school boat driver home. She states she will call family to pick her up. She states her son stated her Diego has come to her home in the mail. She declines other needs at this time. CM will continue to follow and assist with discharge planning/needs. DCP- Discharge Planning Updated by [email or web address]: Mouna Horowitz on 11/11/18 11:[address] Patient Name: ADELINA FOSTER Admission Status: ER Accout number: [id number] Admission Date: 11-10-2018 : 1970 Admission Diagnosis: Attending: FLIP JOHNSON Current LOS: 1 Anticipated DC Date: Planned Disposition: Home Primary Insurance: [employer] MA[employer]GED MEDICAID Discharge Planning Comments: CM met with patient to complete initial dc planning assessment. CM educated patient on the CM role and verbal consent given by patient to complete assessment. Patient lives at home with her son (Laurence). At discharge patient plans to return and feels this is a safe discharge. CM discussed availability of home health, rehab services, and medical equipment. Patient denied known discharge needs at this time. Patient has a Managed Medicaid and states that she was able to get her lactulose RX. (Lactulose is 15 dollars for 30 day supply and 30 dollars for 90 day supply at [facility] for miller pay). She just couldn't get the Rifaximin. Orly (CM) had faxed for assistance with this medication to [employer]. I spoke with Anam at the company [phone] and she states that the patient was approved for medication and it was shipped to her home today and it will be at her home in 3-5 business days. I informed the patient this, so she will watch for the shipment at the beginning of next week. CM will continue to follow and will assist as needed with dc plans/needs. Adoption Social Worker: Mouna Carlos Manuel DCPIA - Discharge Planning Initial Assessment Updated by [email or web address]: Mouna Horowitz on 11/11/18 12:46 pm * Is the patient Alert and Oriented? Yes * PCP Dr. Britt * Pharmacy [facility] * Preadmission Environment Home with Family * ADLs Independent * Equipment None * Other Equipment None * List name and contact numbers for known caregivers / representatives who currently or will assist patient after discharge: Laurence Martinez [facility] - [phone] * Verbal permission to speak to the caregivers and representatives has been obtained from the patient. Yes * Community resources currently utilized None * Additional services required to return to the preadmission environment? No * Can the patient safely return to the preadmission environment? Yes * Has this patient been hospitalized within the prior 30 days at any hospital? Yes Last DP export: 11/11/18 11:59 am Patient Name: ADELINA FOSTER Page [id number] at 1401 All edits/amendments must be made on the electronic document DICTATION DATE: 11/19/18 140 CONCRETE INSPECTOR: LUCÍA 11/19/18 1401 RPT#: [id number] DC DATE: STATUS: ADM IN [facility] [address] [place] [address] END OF REPORT
[2018-11-19 14:09] LABS: SMOOTH MUSCLE ABS (ACTIN) 21 Units (0-19)
--- NOTE | 2018-11-19 15:16 | NUR ---
PT DISCHARGE INSTRUCTIONS PROVIDED FOR DISCHARGE. DISCUSSED S/S TO MONITOR FOR. STRESSED THE IMPORTANCE OF SHOWERING NOT TUB BATHS. DISCUSSED CONTINUATION OF MEDICATIONS AND NEW SCRIPTS. IV D/C'D FROM RIGHT FOREARM, CATH INTACT. PT AWAITING RIDE FOR D/C
--- NOTE | 2018-11-19 15:40 | NUR ---
PT TAKEN OUT VIA W/C WITH ALL PERSONAL POSESSIONS. NO ACUTE DISTRESS NOTED
--- NOTE | 2018-11-22 08:47 | MORECARE ---
CASE MANAGEMENT DISCHARGE SUMMARY PATIENT: ADELINA FOSTER UNIT: [id number] ADM DATE: 11/10/18 AGE: 48 : 68 SEX: F ROOM/BED: D.2223 AUTHOR: GATO HASSAN PHYSICIAN: REFERRING PHYSICIAN: FLIP JOHNSON MD DATE OF SERVICE: 11/22/18 Discharge Plan Patient Name: ADELINA FOSTER Facility: [facility]:[place] : 1970 Planned Disposition: Home Anticipated Discharge Date: Discharge Date: 11/19/2018 Expected LOS: Initial Reviewer: [email or web address] Initial Review Date: 11/11/2018 Generated: 11/22/18 9:47 am Comments DCP- Discharge Planning Updated by [email or web address]: Mouna Horowitz on 11/19/18 12:[address] Received order for discharge. She is up in room packing her belongings. She had moderate sedation today, so she will need a local intermodal truck driver home. She states she will call family to pick her up. She states her son stated her Diego has come to her home in the mail. She declines other needs at this time. CM will continue to follow and assist with discharge planning/needs. DCP- Discharge Planning Updated by [email or web address]: Mouna Horowitz on 11/11/18 11:[address] Patient Name: ADELINA FOSTER Admission Status: ER Accout number: [id number] Admission Date: 11-10-2018 : 1970 Admission Diagnosis: Attending: FLIP JOHNSON Current LOS: 1 Anticipated DC Date: Planned Disposition: Home Primary Insurance: [employer] MANAGED MEDICAID Discharge Planning Comments: CM met with patient to complete initial dc planning assessment. CM educated patient on the CM role and verbal consent given by patient to complete assessment. Patient lives at home with her son (Laurence). At discharge patient plans to return and feels this is a safe discharge. CM discussed availability of home health, rehab services, and medical equipment. Patient denied known discharge needs at this time. Patient has a Managed Medicaid and states that she was able to get her lactulose RX. (Lactulose is 15 dollars for 30 day supply and 30 dollars for 90 day supply at [facility] for miller pay). She just couldn't get the Rifaximin. Orly (CM) had faxed for assistance with this medication to [employer]. I spoke with Anam at the company [phone] and she states that the patient was approved for medication and it was shipped to her home today and it will be at her home in 3-5 business days. I informed the patient this, so she will watch for the shipment at the beginning of next week. CM will continue to follow and will assist as needed with dc plans/needs. Category Planner: Mouna Guadalupesrinivas DCPIA - Discharge Planning Initial Assessment Updated by [email or web address]: Mouna Horowitz on 11/11/18 12:46 pm * Is the patient Alert and Oriented? Yes * PCP Dr. Britt * Pharmacy [facility] * Preadmission Environment Home with Family * ADLs Independent * Equipment None * Other Equipment None * List name and contact numbers for known caregivers / representatives who currently or will assist patient after discharge: Laurence Martinez [facility] - [phone] * Verbal permission to speak to the caregivers and representatives has been obtained from the patient. Yes * Community resources currently utilized None * Additional services required to return to the preadmission environment? No * Can the patient safely return to the preadmission environment? Yes * Has this patient been hospitalized within the prior 30 days at any hospital? Yes Last DP export: 11/19/18 1:01 p Patient Name: ADELINA FOSTER Page [id number] at 0847 All edits/amendments must be made on the electronic document DICTATION DATE: 11/22/18846 YIELD LOSS INSPECTOR: LUCÍA 11/22/18846 RPT#: [id number] DC DATE:11/19/18 STATUS: DIS IN [facility] [address] [place] [address] END OF REPORT
== END 2018-11-19 15:52 | disposition home or self-care (01) | DRG 432 ==
LOC: D.ER 12:54 → D.MS 17:30
PROVIDERS: Family Medicine; General Practice; Internal Medicine Gastroenterology; Internal Medicine Nephrology; Radiology Vascular & Interventional Radiology; Specialist; ADMIT Family Medicine; ATTEND Family Medicine
PROC: 0W9G3ZZ Drainage of Peritoneal Cavity, Percutaneous Approach (ICD-10-PCS; principal; 2018-11-11 10:12)
PROC: 0W9G3ZZ Drainage of Peritoneal Cavity, Percutaneous Approach (ICD-10-PCS; 2018-11-19)
DX: K70.31 Alcoholic cirrhosis of liver with ascites (principal); E43 Unspecified severe protein-calorie malnutrition; N17.9 Acute kidney failure, unspecified; E87.1 Hypo-osmolality and hyponatremia; N39.0 Urinary tract infection, site not specified; K72.90 Hepatic failure, unspecified without coma; D53.9 Nutritional anemia, unspecified; E87.6 Hypokalemia; E87.8 Other disorders of electrolyte and fluid balance, not elsewhere classified; E80.6 Other disorders of bilirubin metabolism; R73.9 Hyperglycemia, unspecified; K80.20 Calculus of gallbladder without cholecystitis without obstruction; Z68.25 Body mass index [BMI] 25.0-25.9, adult

== ENCOUNTER 2018-12-01 16:59 | Inpatient (IN) | payer OTHER ==
[~2018-12-01] VITALS: Ht 162.6 cm; Wt 67.0 kg
[~2018-12-01 16:59] MED LIST changes: +FOLATE0.4 MG PO
[2018-12-01 17:56] LABS: BASOPHILS 0.1 % (0-2); EOSINOPHILS 0.8 % (0-7); HEMOGLOBIN 8.9 g/dL (12-16); IMMATURE GRANULOCYTES 2.9 % (0-5); LYMPHOCYTES 9.7 % (15-50); MCH 37.4 pg (26.0-34.0); MCHC 35.6 g/dL (31.0-37.0); MEAN PLATELET VOLUME 11.9 fL (7.4-10.4); MONOCYTES 8.5 % (2-11); PLATELET COUNT 138 10x3/uL (130-400); RBC 2.38 10x6/uL (4.00-5.40); RDW 23.1 % (11.5-14.5)
--- NOTE | 2018-12-01 18:10 | NUR ---
URINE SPECIMEN OBTAINED, LABELED AT BS AND SENT TO LAB
[2018-12-01 18:12] LABS: APTT 43.7 SECONDS (22.8-39.4); INR 1.68 (0.85-1.17); PROTIME 19.2 SECONDS (11.6-15.0)
[2018-12-01 18:22] LABS: ALBUMIN 2.3 g/dL (3.4-5.0); ALKALINE PHOSPHATASE 200 U/L (46-116); ALT (SGPT) 47 U/L (10-68); BILIRUBIN - TOTAL 18.83 mg/dL (0.2-1.3); CALC OSMOLALITY 256 mosm/kg (275-300); CALCIUM 8.3 mg/dL (8.5-10.1); CARBON DIOXIDE 19.8 mmol/L (21.0-32.0); CHLORIDE - SERUM 95 mmol/L (98-107); CREATININE - SERUM 1.1 mg/dL (0.6-1.3); GLUCOSE 139 mg/dL (74-106); POTASSIUM - SERUM 4.4 mmol/L (3.5-5.1); PROTEIN - SERUM 6.7 g/dL (6.4-8.2); SODIUM 126 mmol/L (136-145); UREA NITROGEN 17 mg/dL (7-18); eGFR NON AFRICAN AMERICAN 56 mL/min (90-120)
[2018-12-01 18:26] LABS: AMYLASE - SERUM 85 U/L (25-115); LIPASE 863 U/L (73-393)
[2018-12-01 18:38] LABS: TROPONIN-I < 0.017 ng/mL (0.000-0.060)
[2018-12-01 18:57] VITALS: BP 103/62
[2018-12-01 19:12] LABS: APPEARANCE CLEAR (CLEAR); BILIRUBIN 2+ (NEGATIVE); COLOR DK YELLOW (YELLOW); GLUCOSE NEGATIVE (NEGATIVE); KETONE NEGATIVE (NEGATIVE); NITRITE NEGATIVE (NEGATIVE); PROTEIN NEGATIVE (NEGATIVE); SPECIFIC GRAVITY 1.015 (1.005-1.020); UROBILINOGEN NORMAL (NORMAL)
--- NOTE | 2018-12-01 19:23 | NUR ---
REPORT CALLED TO JESUS LECHUGA BY SBAR FORMAT
--- NOTE | 2018-12-01 19:27 | NUR ---
TRANSPORTED TO ROOM #1212, CONDITION STABLE
[2018-12-01 20:00] VITALS: BP 123/64; BMI 198.8
[2018-12-02 04:23] VITALS: BP 135/70
[2018-12-02 07:01] LABS: BASOPHILS 0.1 % (0-2); EOSINOPHILS 1.2 % (0-7); HEMATOCRIT 21.1 % (36.0-48.0); HEMOGLOBIN 7.6 g/dL (12-16); IMMATURE GRANULOCYTES 2.3 % (0-5); LYMPHOCYTES 10.9 % (15-50); MCH 37.4 pg (26.0-34.0); MCV 103.9 fL (80.0-100.0); MEAN PLATELET VOLUME 11.4 fL (7.4-10.4); MONOCYTES 8.7 % (2-11); NEUTROPHILS 76.8 % (40-80); PLATELET COUNT 113 10x3/uL (130-400); RBC 2.03 10x6/uL (4.00-5.40); RDW 22.4 % (11.5-14.5); WBC 12.4 10x3/uL (4.8-10.8)
[2018-12-02 07:31] LABS: ALBUMIN 1.9 g/dL (3.4-5.0); ANION GAP 13.2 mmol/L (8-16); BILIRUBIN - TOTAL 15.88 mg/dL (0.2-1.3); CARBON DIOXIDE 20.4 mmol/L (21.0-32.0); PHOSPHOROUS 3.2 mg/dL (2.5-4.9); POTASSIUM - SERUM 4.6 mmol/L (3.5-5.1); PROTEIN - SERUM 5.7 g/dL (6.4-8.2)
[2018-12-02 08:20] VITALS: BP 109/64
[2018-12-02 10:12] LABS: INR 1.93 (0.85-1.17); PROTIME 21.4 SECONDS (11.6-15.0)
[2018-12-02 10:55] LABS: UDS - AMPHET NEGATIVE QUAL (NEGATIVE); UDS - BARB NEGATIVE QUAL (NEGATIVE); UDS - BENZO NEGATIVE QUAL (NEGATIVE); UDS - COCAINE NEGATIVE QUAL (NEGATIVE); UDS - OPIATE NEGATIVE QUAL (NEGATIVE); UDS - PCP NEGATIVE QUAL (NEGATIVE); UDS - THC POSITIVE QUAL (NEGATIVE)
[2018-12-02 11:46] LABS: % SATURATION 100 % (15-55); IRON 101 ug/dl (35-150); TOTAL IRON BIND CAPACITY 101 ug/dl (260-445); UNSAT IRON BIND CAPACITY 0 ug/dl (150-375)
--- NOTE | 2018-12-02 12:07 | NUR ---
IVR HERE TO TAKE PT FOR PARACENTESIS
--- NOTE | 2018-12-02 12:30 | NUR ---
PT RETURNED TO FLOOR FROM PARACENTESIS. VSS AND WNL. WILL CONT TO FOLLOW POC
--- NOTE | 2018-12-02 12:50 | NUR ---
VSS AND WNL DENIES ANY NEEDS AT THIS TIME. PT ATE 100% OF LUNCH. WILL CONT TO FOLLOW POC
[2018-12-02 13:20] VITALS: Ht 162.6 cm; Wt 67.0 kg
--- NOTE | 2018-12-02 13:20 | NUR ---
PT RESTING IN BED, DENIES ANY NEEDS AT THIS TIME, VSS AND WNL. WILL CONT TO FOLLOW POC
[2018-12-02 17:12] VITALS: BP 114/64
--- NOTE | 2018-12-02 18:50 | NUR ---
PT REQUEST TOWELS TO TAKE A SHOWER. WRAPPED PIV AND PROVIDED TOWELS. WILL CONT TO FOLLOW POC
--- NOTE | 2018-12-02 19:14 | MORECARE ---
CASE MANAGEMENT DISCHARGE SUMMARY PATIENT: ADELINA FOSTER UNIT: [id number] ADM DATE: 12/01/18 AGE: 48 : 68 SEX: F ROOM/BED: D.1213 AUTHOR: GATO HASSAN PHYSICIAN: REFERRING PHYSICIAN: KENAN RUFFIN MD DATE OF SERVICE: 12/02/18 Discharge Plan Patient Name: ADELINA FOSTER Facility: [facility]:[place] : 1970 Planned Disposition: Home Anticipated Discharge Date: Discharge Date: Expected LOS: Initial Reviewer: [email or web address] Initial Review Date: 12/02/2018 Generated: 12/02/18 8:13 pm Patient Name: ADELINA FOSTRE Page 58161 at 1914 All edits/amendments must be made on the electronic document DICTATION DATE: 12/02/181912 GM: LUCÍA 12/02/181912 RPT#: [id number] DC DATE: STATUS: ADM IN [facility] [address] [place] [address] END OF REPORT
--- NOTE | 2018-12-02 19:21 | MORECARE ---
CASE MANAGEMENT DISCHARGE SUMMARY PATIENT: ADELINA FOSTER UNIT: [id number] ADM DATE: 12/01/18 AGE: 48 : [birth year] SEX: F ROOM/BED: D.1213 AUTHOR: GATO HASSAN PHYSICIAN: REFERRING PHYSICIAN: KENAN RUFFIN MD DATE OF SERVICE: 12/02/18 Discharge Plan Patient Name: ADELINA FOSTER Facility: [facility]:[place] : 1970 Planned Disposition: Home Anticipated Discharge Date: Discharge Date: Expected LOS: Initial Reviewer: [email or web address] Initial Review Date: 12/02/2018 Generated: 12/02/18 8:21 pm DCPIA - Discharge Planning Initial Assessment Updated by [email or web address]: Cristela Jack on 12/02/18 7:15 pm * Is the patient Alert and Oriented? Yes * How many steps to enter\exit or inside your home? 14 * PCP NO PCP * Pharmacy [facility] * Preadmission Environment Home with Family * ADLs Independent * List name and contact numbers for known caregivers / representatives who currently or will assist patient after discharge: GELY EVA - [phone] * Verbal permission to speak to the caregivers and representatives has been obtained from the patient. N/A * Community resources currently utilized None * Additional services required to return to the preadmission environment? No * Can the patient safely return to the preadmission environment? Yes * Has this patient been hospitalized within the prior 30 days at any hospital? No Last DP export: 12/02/18 6:14 p Patient Name: ADELINA FOSTER Page 55471 at 1921 All edits/amendments must be made on the electronic document DICTATION DATE: 12/02/181920 SEED POTATO ARRANGER: LUCÍA 12/02/181920 RPT#: [id number] DC DATE: STATUS: ADM IN [facility] [address] [place] [address] END OF REPORT
--- NOTE | 2018-12-02 19:28 | MORECARE ---
CASE MANAGEMENT DISCHARGE SUMMARY PATIENT: ADELINA FOSTER UNIT: [id number] ADM DATE: 12/01/18 AGE: 48 : [birth year] SEX: F ROOM/BED: D.1213 AUTHOR: GATO HASSAN PHYSICIAN: REFERRING PHYSICIAN: KENAN RUFFIN MD DATE OF SERVICE: 12/02/18 Discharge Plan Patient Name: ADELINA FOSTER Facility: [facility]:[place] : 1970 Planned Disposition: Home Anticipated Discharge Date: Discharge Date: Expected LOS: Initial Reviewer: [id number] Initial Review Date: 12/02/2018 Generated: 12/02/18 8:28 pm DCPIA - Discharge Planning Initial Assessment Updated by [email or web address]: Cristela Jack on 12/02/18 7:24 pm * Is the patient Alert and Oriented? Yes * How many steps to enter\exit or inside your home? 12 * PCP [place] * Pharmacy [facility] * Preadmission Environment Home with Family * ADLs Independent * List name and contact numbers for known caregivers / representatives who currently or will assist patient after discharge: DAVID LOUIE [facility] - [phone] * Verbal permission to speak to the caregivers and representatives has been obtained from the patient. N/A * Community resources currently utilized None * Additional services required to return to the preadmission environment? No * Can the patient safely return to the preadmission environment? Yes * Has this patient been hospitalized within the prior 30 days at any hospital? Yes Last DP export: 12/02/18 6:21 p Patient Name: ADELINA FOSTER Page 18825 at 1928 All edits/amendments must be made on the electronic document DICTATION DATE: 12/02/181927 DIE MAINTENANCE TECHNICIAN: LUCÍA 12/02/181927 RPT#: [id number] DC DATE: STATUS: ADM IN [facility] [address] [place] [address] END OF REPORT
--- NOTE | 2018-12-02 19:36 | MORECARE ---
CASE MANAGEMENT DISCHARGE SUMMARY PATIENT: ADELINA FOSTER UNIT: [id number] ADM DATE: 12/01/18 AGE: 48 : [birth year] SEX: F ROOM/BED: D.1213 AUTHOR: MODOC PHYSICIAN: REFERRING PHYSICIAN: KENAN RUFFIN MD DATE OF SERVICE: 12/02/18 Discharge Plan Patient Name: ADELINA FOSTER Facility: [facility]:[place] : 1970 Planned Disposition: Home Anticipated Discharge Date: Discharge Date: Expected LOS: Initial Reviewer: [email or web address] Initial Review Date: 12/02/2018 Generated: 12/02/18 8:36 pm Comments DCP- Discharge Planning Updated by [email or web address]: Cristela Jack on 12/02/18 6:[address] Patient Name: ADELINA FOSTER Admission Status: ER Accout number: [id number] Admission Date: 12-01-2018 : 1970 Admission Diagnosis: Attending: KENAN RUFFIN Current LOS: 1 Anticipated DC Date: Planned Disposition: Home Primary Insurance: [employer] MANAGED MEDICAID Discharge Planning Comments: CM met with patient to complete initial dc planning assessment. CM educated patient on the CM role and verbal consent given by patient to complete assessment. Patient lives at home with her son where she is independent with her care. At discharge patient plans to return home and feels this is a safe discharge. CM discussed availability of home health, rehab services, and medical equipment. Her son will be her dolly driver home. Patient denied known discharge needs at this time. CM will continue to follow and will assist as needed with dc plans/needs. Branch Or Department Chief Librarian: Cristela Jack DCPIA - Discharge Planning Initial Assessment Updated by [email or web address]: Cristela Jack on 12/02/18 7:24 pm * Is the patient Alert and Oriented? Yes * How many steps to enter\exit or inside your home? 12 * PCP [place] * Pharmacy [facility] * Preadmission Environment Home with Family * ADLs Independent * List name and contact numbers for known caregivers / representatives who currently or will assist patient after discharge: DAVID LOUIE - [facility] - [phone] * Verbal permission to speak to the caregivers and representatives has been obtained from the patient. N/A * Community resources currently utilized None * Additional services required to return to the preadmission environment? No * Can the patient safely return to the preadmission environment? Yes * Has this patient been hospitalized within the prior 30 days at any hospital? Yes Last DP export: 12/02/18 6:29 p Patient Name: ADELINA FOSTER Page 44642 at 1936 All edits/amendments must be made on the electronic document DICTATION DATE: 12/02/181934 GYRO MECHANIC: LUCÍA 12/02/181934 RPT#: [id number] DC DATE: STATUS: ADM IN [facility] [address] [place] [address] END OF REPORT
[2018-12-02 20:06] VITALS: BP 108/60
[2018-12-03 00:49] VITALS: BP 115/54
[2018-12-03 04:48] VITALS: BP 106/65
--- NOTE | 2018-12-03 07:15 | NUR ---
PT RESTING IN BED, SHIFT ASSESSMENT PERFORMED. VSS AND WNL. DENIES ANY NEEDS AT THIS TIME, WILL CONT TO FOLLOW POC
[2018-12-03 07:23] LABS: BASOPHILS 0.2 % (0-2); EOSINOPHILS 1.2 % (0-7); HEMATOCRIT 23.4 % (36.0-48.0); HEMOGLOBIN 8.1 g/dL (12-16); IMMATURE GRANULOCYTES 3.1 % (0-5); LYMPHOCYTES 9.1 % (15-50); MCH 38.4 pg (26.0-34.0); MCHC 34.6 g/dL (31.0-37.0); MCV 110.9 fL (80.0-100.0); MEAN PLATELET VOLUME 12.1 fL (7.4-10.4); MONOCYTES 8.2 % (2-11); NEUTROPHILS 78.2 % (40-80); PLATELET COUNT 123 10x3/uL (130-400); RBC 2.11 10x6/uL (4.00-5.40); RDW 22.2 % (11.5-14.5); WBC 11.5 10x3/uL (4.8-10.8)
[2018-12-03 07:51] LABS: BILIRUBIN - TOTAL 17.08 mg/dL (0.2-1.3); CALCIUM 7.7 mg/dL (8.5-10.1); CARBON DIOXIDE 18.1 mmol/L (21.0-32.0); CREATININE - SERUM 0.9 mg/dL (0.6-1.3); MAGNESIUM - SERUM 1.7 mg/dL (1.8-2.4); PHOSPHOROUS 2.9 mg/dL (2.5-4.9); POTASSIUM - SERUM 3.1 mmol/L (3.5-5.1); PROTEIN - SERUM 6.1 g/dL (6.4-8.2)
--- NOTE | 2018-12-03 12:20 | NUR ---
DISCHARGE INSTRUCTIONS REVIEWED WITH PT AND ALL QUESTIONS ANSWERED. PIV REMOVED WITH CATHETER TIP INTACT. PT WAITING FOR RIDE TO ARRIVE
--- NOTE | 2018-12-03 13:15 | NUR ---
PT ASSISTED TO FRONT OF HOSPITAL VIA WHEELCHAIR WHERE SHE LEFT WITH FRIEND
--- NOTE | 2018-12-04 15:47 | MORECARE ---
CASE MANAGEMENT DISCHARGE SUMMARY PATIENT: ADELINA FOSTER UNIT: [id number] ADM DATE: 12/01/18 AGE: 48 : 68 SEX: F ROOM/BED: D.1213 AUTHOR: MO,DOC PHYSICIAN: REFERRING PHYSICIAN: KENAN RUFFIN MD DATE OF SERVICE: 12/04/18 Discharge Plan Patient Name: ADELINA FOSTER Facility: [facility]:[place] : 1970 Planned Disposition: Home Anticipated Discharge Date: Discharge Date: 12/03/2018 Expected LOS: Initial Reviewer: [email or web address] Initial Review Date: 12/02/2018 Generated: 12/04/18 4:46 pm DCP- Discharge Planning Updated by [email or web address]: Cristela Jack on 12/02/18 6:[address] Patient Name: ADELINA FOSTER Admission Status: ER Accout number: [id number] Admission Date: 12-01-2018 : 1970 Admission Diagnosis: Attending: KENAN RUFFIN Current LOS: 1 Anticipated DC Date: Planned Disposition: Home Primary Insurance: [employer] MA[employer]GED MEDICAID Discharge Planning Comments: CM met with patient to complete initial dc planning assessment. CM educated patient on the CM role and verbal consent given by patient to complete assessment. Patient lives at home with her son where she is independent with her care. At discharge patient plans to return home and feels this is a safe discharge. CM discussed availability of home health, rehab services, and medical equipment. Her son will be her patient transportation driver home. Patient denied known discharge needs at this time. CM will continue to follow and will assist as needed with dc plans/needs. Wafer Cleaner: Cristela Jack DCPIA - Discharge Planning Initial Assessment Updated by [email or web address]: Cristela Jack on 12/02/18 7:24 pm * Is the patient Alert and Oriented? Yes * How many steps to enter\exit or inside your home? 12 * PCP [place] * Pharmacy [facility] * Preadmission Environment Home with Family * ADLs Independent * List name and contact numbers for known caregivers / representatives who currently or will assist patient after discharge: DAVID LOUIE - [facility] - [phone] * Verbal permission to speak to the caregivers and representatives has been obtained from the patient. N/A * Community resources currently utilized None * Additional services required to return to the preadmission environment? No * Can the patient safely return to the preadmission environment? Yes * Has this patient been hospitalized within the prior 30 days at any hospital? Yes Last DP export: 12/02/18 6:36 p Patient Name: ADELINA FOSTER Page [id number] at 1547 All edits/amendments must be made on the electronic document DICTATION DATE: 12/04/18 1546 CIVIL DRAFTSMAN: LUCÍA 12/04/18 1546 RPT#: [id number] DC DATE:12/03/18 STATUS: DIS IN [facility] [address] [place] [address] END OF REPORT
== END 2018-12-03 13:16 | disposition home or self-care (01) | DRG 432 ==
LOC: D.ER 16:59 → D.M3 18:49 → OBSVTIME 18:51 → D.M3 19:29
PROVIDERS: Family Medicine; General Practice; ADMIT Internal Medicine Nephrology; ATTEND Internal Medicine Nephrology
PROC: 0W9G3ZZ Drainage of Peritoneal Cavity, Percutaneous Approach (ICD-10-PCS; principal; 2018-12-02 12:20)
DX: K70.40 Alcoholic hepatic failure without coma (principal); K85.90 Acute pancreatitis without necrosis or infection, unspecified; E43 Unspecified severe protein-calorie malnutrition; R18.8 Other ascites; E87.1 Hypo-osmolality and hyponatremia; D53.9 Nutritional anemia, unspecified; Z91.14 Patient's other noncompliance with medication regimen; Z68.25 Body mass index [BMI] 25.0-25.9, adult

== ENCOUNTER 2018-12-20 06:40 | Outpatient (CLI) | payer OTHER ==
--- NOTE | 2018-12-17 12:52 | NUR ---
CALLED PT. NO ANSWER.
[~2018-12-20] VITALS: Ht 162.6 cm; Wt 69.1 kg
[2018-12-20 07:00] LABS: BASOPHILS 0.1 % (0-2); EOSINOPHILS 0.7 % (0-7); HEMATOCRIT 21.6 % (36.0-48.0); IMMATURE GRANULOCYTES 1.2 % (0-5); LYMPHOCYTES 10.3 % (15-50); MCH 39.4 pg (26.0-34.0); MCHC 34.3 g/dL (31.0-37.0); MCV 114.9 fL (80.0-100.0); MEAN PLATELET VOLUME 10.7 fL (7.4-10.4); NEUTROPHILS 79.7 % (40-80); PLATELET COUNT 124 10x3/uL (130-400); RDW 16.1 % (11.5-14.5); WBC 13.7 10x3/uL (4.8-10.8)
[2018-12-20 07:02] LABS: RBC 1.88 10x6/uL (4.00-5.40)
[2018-12-20 07:03] LABS: HEMOGLOBIN 7.4 g/dL (12-16)
[2018-12-20 07:06] LABS: ANION GAP 15.9 mmol/L (8-16); APTT 46.7 SECONDS (22.8-39.4); CREATININE - SERUM 1.7 mg/dL (0.6-1.3); INR 1.9 (0.85-1.17); POTASSIUM - SERUM 3.9 mmol/L (3.5-5.1); PROTIME 21.2 SECONDS (11.6-15.0)
--- NOTE | 2018-12-20 07:06 | NUR ---
CRITICAL LAB RBC 1.88 AND HG 7.4. CALLED SPECIALS NURSE AND HE SAID HE WOULD LET THEM KNOW.
[2018-12-20 07:19] VITALS: BP 103/54; Ht 162.6 cm; Wt 69.1 kg
[2018-12-20 07:49] LABS: ALBUMIN 2.2 g/dL (3.4-5.0); BILIRUBIN - TOTAL 15.56 mg/dL (0.2-1.3); PROTEIN - SERUM 6.9 g/dL (6.4-8.2)
--- NOTE | 2018-12-20 10:13 | NUR ---
1010 TO 2510 BY GALAER, SON AT SIDE. WATER SERVED.
--- NOTE | 2018-12-20 10:35 | NUR ---
1025 UP TO BR VOIDS AND HAS BM. 1027 REG BREAKFAST SERVED
--- NOTE | 2018-12-20 11:08 | NUR ---
1104 REPORT PHONED TO ER NURSE TO ROOM 14 VIA STRETCHER
[2018-12-20 11:11] LABS: EOS BF 1 %; MACROPHAGES BF 5 %; MESOTHELIALS BF 10 %
[2018-12-20 11:12] LABS: NEUT - BF 69 %
== END 2018-12-20 11:16 ==
LOC: D.SP 06:40 → D.RAD 09:00 → D.SP 11:16
PROVIDERS: Radiology Diagnostic Radiology; ATTEND Family Medicine Adult Medicine
DX: R18.8 Other ascites (principal)

== ENCOUNTER 2018-12-20 11:30 | Emergency (ER) | payer OTHER ==
[~2018-12-20] VITALS: Ht 162.6 cm; Wt 68.0 kg
[2018-12-20 11:38] VITALS: Ht 162.6 cm; Wt 68.0 kg
[2018-12-20 13:42] VITALS: BP 101/49
== END 2018-12-20 13:45 | disposition home or self-care (01) ==
LOC: D.ER 11:30
DX: D64.9 Anemia, unspecified (principal); R18.8 Other ascites